=== PATIENT | male | born 1985 | race Caucasian/White ===

== ENCOUNTER 2020-03-08 13:39 | Emergency (ER) | payer SELFPAY ==
[2020-03-08 13:43] VITALS: BP 130/80; PULSE 67; RESP 16; TEMP 36.6; O2SAT 96; BMI 36.9
--- NOTE | 2020-03-08 13:57 | ECG_ITS ---
[facility] Test Date: 2020-03-08 Pat Name: Parvez Gentile Department: Room: Gender: Male [employer] Bench: : 1985 Requested By: Marquise Herrmann I Order Number: [id number] Angel MD: Ramirez Hurtado M.D. Measurements Intervals [place] Rate: 61 P: 47 [place]: 215 QRS: 59 QRSD: 96 T: 49 QT: 377 QTc: 383 Interpretive Statements SINUS RHYTHM WITH FIRST DEGREE AV BLOCK Compared to ECG 09/09/2018 13:16:17 First degree AV block now present Electronically Signed On 03-09-2020 0:28:46 CDT by Ramirez Hurtado M.D. [id number] f
--- NOTE | 2020-03-08 13:57 | CT_ITS ---
WS: [id number] CT HEAD TECHNIQUE: Noncontrast CT of the head obtained from the skullbase to the vertex. CLINICAL INFORMATION: Symptoms of Acute Stroke COMPARISON: None. DLP: 888.[address] scans at [facility] use at least one of these dose optimization techniques: automat ed exposure control; mA and/or kV adjustment per patient size (includes targeted exams where dose is matched to clinical indication); or iterative reconstruction. FINDINGS: No evidence of intracranial hemorrhage or mass effect. Ventricular system and basal cisterns are more[place] nt. No extra-axial fluid collections. No evidence of mass or mass effect. Normal downs-white different iation. Paranasal sinuses and mastoid air cells are well aerated. .Normal visualized soft tissues. Attempted notification Marquise Herrmann MD MSM at 03/08/2020 2:[address]/CT head wo con* [id number] IMPRESSION: 1. No evidence of intracranial hemorrhage or mass effect. 2. Normal downs-white differentiation 3. No acute intracranial findings.
[2020-03-08 14:04] LABS: Glucose Point of Care 92 mg/dL (70-110)
[2020-03-08 14:16] LABS: Basophils % 0.5 %; Eosinophils # 0.1 10^3/uL (0.0-0.8); Eosinophils % 1.2 %; Hematocrit 43.7 % (42.0-52.0); Hemoglobin 14.3 g/dL (11.7-16.6); Lymphocytes # 2.6 10^3/uL (0.8-4.8); Lymphocytes % 33.1 %; Mean Corpuscular HGB Conc 32.7 g/dL (30.0-36.0); Mean Corpuscular Hemoglobin 29.6 pg (28.0-34.0); Mean Corpuscular Volume 90.5 fL (80-94); Mean Platelet Volume 9.9 fL (7.4-10.4); Monocytes # 0.6 10^3/uL (0.2-0.9); Neutrophils # 4.43 10^3/uL (1.8-7.7); Neutrophils % 57.1 %; Nucleated Red Blood Cells % 0 %; Platelet Count 317 10^3/cmm (130-400); Red Blood Count 4.83 10^6/uL (4.1-5.3); Red Cell Distribution Width 12.2 % (12.1-15.1); White Blood Count 7.8 10^3/uL (4.0-10.0)
--- NOTE | 2020-03-08 14:19 | CTR_ITS ---
PROCEDURE INFORMATION: Exam: CT Angiography Head With Contrast Exam date and time: 03/08/2020 2:42 PM Age: 34 years old Clinical indication: Numbness and visual disturbance; Additional info: Stroke-like symptoms TECHNIQUE: Imaging protocol: Computed tomography angiography of the head with intravenous contrast. 3D rendering: MIP and/or 3D reconstructed images were created by the technologist. Radiation optimization: All CT scans at this facility use at least one of these dose optimization techniques: automated exposure control; mA and/or kV adjustment per patient size (includes targeted exams where dose is matched to clinical indication); or iterative reconstruction. Contrast material: OMNI 350; Contrast volume: 95 ml; Contrast route: INTRAVENOUS (IV); COMPARISON: CT head wo con* [id number] 03/08/2020 1:57 PM RADIATION DOSE METRICS: Total DLP (mGy-cm): 2707.76 FINDINGS: ANTERIOR CIRCULATION: Right internal carotid artery: Unremarkable. Intracranial segment is patent with no significant stenosis. No aneurysm. Right middle cerebral artery: Unremarkable. No occlusion or significant stenosis. No aneurysm. Right anterior cerebral artery: Unremarkable. No occlusion or significant stenosis. No aneurysm. Left internal carotid artery: Unremarkable. Intracranial segment is patent with no significant stenosis. No aneurysm. Left middle cerebral artery: Unremarkable. No occlusion or significant stenosis. No aneurysm. Left anterior cerebral artery: Unremarkable. No occlusion or significant stenosis. No aneurysm. POSTERIOR CIRCULATION: Right vertebral artery: The right vertebral artery is hypoplastic, particularly distal to the right PICA origin. No occlusion. No aneurysm. Left vertebral artery: The left vertebral artery is dominant. No stenosis. No aneurysm. Basilar artery: Unremarkable. No occlusion or significant stenosis. No aneurysm. Right posterior cerebral artery: There is a origin of the right posterior cerebral artery. No stenosis. No aneurysm. Left posterior cerebral artery: Unremarkable. No occlusion or significant stenosis. No aneurysm. Orbits: The ophthalmic arteries are normal and symmetric. IMPRESSION: 1. Dominant left vertebral artery and hypoplastic right vertebral artery. 2. No intracranial large vessel stenosis or occlusion. PROCEDURE INFORMATION: Exam: CT Angiography Neck With Contrast Exam date and time: 03/08/2020 2:42 PM Age: 34 years old Clinical indication: Numbness and visual disturbance; Additional info: Stroke-like symptoms TECHNIQUE: Imaging protocol: Computed tomography angiography of the neck with intravenous contrast. 3D rendering: MIP and/or 3D reconstructed images were created by the technologist. Radiation optimization: All CT scans at this facility use at least one of these dose optimization techniques: automated exposure control; mA and/or kV adjustment per patient size (includes targeted exams where dose is matched to clinical indication); or iterative reconstruction. Contrast material: OMNI 350; Contrast volume: 95 ml; Contrast route: INTRAVENOUS (IV); COMPARISON: CT head wo con* [id number] 03/08/2020 1:57 PM RADIATION DOSE METRICS: Total DLP (mGy-cm): 2707.76 FINDINGS: Right common carotid artery: No stenosis. No dissection or occlusion. Right internal carotid artery: No stenosis of the extracranial segment. No dissection or occlusion. Right external carotid artery: No occlusion or stenosis of the origin. Right vertebral artery: No stenosis. No dissection or occlusion. Left common carotid artery: No stenosis. No dissection or occlusion. Left internal carotid artery: No stenosis of the extracranial segment. No dissection or occlusion. Left external carotid artery: No occlusion or stenosis of the origin. Left vertebral artery: No stenosis. No dissection or occlusion. Bones/joints: No acute fracture. Soft tissues: Normal. No significant soft tissue swelling. CT/CT angio headneck* [id number] IMPRESSION: No carotid or vertebral artery stenosis or dissection. REFERENCES: NASCET CRITERIA. The degree of internal carotid artery stenosis is based on NASCET criteria. Normal is no stenosis. Mild is less than 50% stenosis. Moderate is 50-69% stenosis. Severe is 70% to 99% stenosis. Total occlusion is no detectable patent lumen. Radiation Dose CTDIVOL = (mGy): DLP = 2707.76~2707.76 (mGy-cm)
[2020-03-08 14:24] LABS: Alanine Aminotransferase 40 U/L (0-41); Albumin Level 4.5 g/dL (3.5-5.2); Alkaline Phosphatase 69 IU/L (40-130); Anion Gap 13.2 (5-19); Aspartate Amino Transferase 31 U/L (0-40); Blood Urea Nitrogen 16 mg/dL (6-20); Calcium 8.8 mg/dL (8.5-10.5); Carbon Dioxide 25 mmol/L (22-29); Chloride 105 mmol/L (98-107); Globulin 2.8 g/dL (1.3-4.6); Glomerular Filtration Rate 68.9 mL/min (90-130); Glucose 112 mg/dL (65-115); Osmolality Calculated 285 mOsm/kg (285-295); Potassium 4.2 mmol/L (3.5-5.1); Sodium 139 mmol/L (136-145); Total Bilirubin 0.4 mg/dL (0.15-1.2); Total Protein 7.3 g/dL (6.6-8.7)
--- NOTE | 2020-03-08 14:31 | ED_ITS ---
HPI - Neuro Symptoms/Deficit General: Chief Complaint: Neuro Symptoms/Deficit Stated Complaint: L sided Numbness, blurry vision, feels funny' Time Seen by Provider: 03/08/20 13:49 Source: patient Mode of arrival: ambulatory Limitations: no limitations History of Present Illness: HPI Narrative: 34-year-old gentleman with a prior history of a STEMI 2 years ago presents to the emergency department with complaints of left-sided numbness and tingling as well as blurry vision and not feeling well. Symptoms started suddenly when he was taking a car/drive. 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 He denies any focal weakness, no prior history of a stroke. During evaluation his symptoms resolved. Onset (ago): hour(s) (1) Last Observed Normal: 13:15 Location: other (numbness and tingling in left upper and lower extremities and blurry vision) History of same: No Severity: mild Quality: numb and tingling Relieving factors: none Context: sudden onset On Anticoagulants: No Associated symptoms: Reports other (blurry vision); Deny headache(s), nausea or vomiting Treatments Prior to Arrival: none Review of Systems General: Reports: 10 or more systems reviewed and unremarkable except in HPI and below Const: Denies: fever(s), chills or body aches Eyes: Denies: change in vision or blurry vision ENMT: Denies: throat pain, enlarged tonsils, odynophagia, hoarseness, mouth pain or swelling of lips/tongue Card: Denies: palpitations, irregular heart rhythm, edema or swelling of feet/ankles Resp: Denies: dyspnea, productive cough or non-productive cough GI: Denies: abdominal pain, nausea or vomiting : Denies: flank pain, dysuria, urinary frequency, urinary urgency or urinary hesitancy Musc: Denies: neck pain, back pain or extremity swelling Skin/Breast: Denies: rash, pruritus or erythema Neuro: Reports: numbness in extremities; Denies: headache(s) or weakness in extremities Endo: Denies: polyuria, polydipsia or tired all the time [facility] ED PFSH: Medical History Alcoholism Anterior wall myocardial infarction CAD (coronary atherosclerotic disease) Dyslipidemia HTN (hypertension), benign Insomnia Ischemic cardiomyopathy Other stomatitis and mucositis (ulcerative) Surgical History S/P angioplasty with stent Family History Other Cancer Parkinson disease Social History Smoking and tobacco status: former smoker Alcohol intake: current Alcohol intake frequency: holidays/special occasions only Alcohol type: wine Household members: spouse Marital status: service: No Camille/Jewish: Mormon NIH stroke score NIHSS: Level Of Consciousness - 1a: 0 Level Of Consciousness Questions - 1b: Both Correct Level Of Consciousness Commands - 1c: Both Correct Best Gaze - 2: Normal Visual Padilla - 3: No Visual Loss Facial Palsy - 4: Normal Motor Arm Right - 5: No Drift Motor Arm Left - 5: No Drift Motor Leg Right - 6: No Drift Motor Leg Left - 6: No Drift Limb Ataxia - 7: Absent Sensory - 8: Normal Best Language - 9: No Aphasia Dysarthia - 10: Normal Extinction And Inattention - 11: 0 Score: Total Score: 0 Physical Exam Const: COMMON NORMALS: no acute distress, average body habitus, patient oriented x3, no limitations, healthy appearing, alert and well nourished HENMT: COMMON NORMALS: normocephalic, atraumatic and moist oral mucous membranes HEAD & SCALP: normocephalic and atraumatic Neck/C-Spine: COMMON NORMALS: no meningeal signs and no JVD Resp: COMMON NORMALS: normal respiratory effort, No retractions, No use of accessory muscles, clear to auscultation bilaterally and percussion normal AUSCULTATION: clear to auscultation bilaterally PERCUSSION: percussion normal Cardio: COMMON NORMALS: no JVD, regular rate, regular rhythm, S1 normal heart sound present, S2 normal heart sound present, No gallops present (Cardio), No clicks present (Cardio), No murmurs present (Cardio), No rub (Cardio) and Peripheral pulses 2+ throughout RATE: regular rate RHYTHM: regular rhythm HEART SOUNDS: S1 normal heart sound present and S2 normal heart sound present PERIPHERAL PULSES: Peripheral pulses 2+ throughout GI: COMMON NORMALS: Normal to inspection, nondistended, normoactive bowel sounds present, Soft to palpation, non-tender, No hepatosplenomegaly present, no masses and no bruits PALPATION: Yes Soft to palpation and Yes No hepatosplenomegaly present : COMMON NORMALS: Yes no CVA tenderness BLADDER/KIDNEY EXAM: Yes no CVA tenderness Back/Pelvis: COMMON NORMALS: no CVA tenderness Extremity: COMMON NORMALS: normal to inspection, full ROM, capillary refill normal, no calf tenderness and no pedal edema Neuro: COMMON NORMALS: patient oriented x3 SENSORIUM/ORIENTATION: Yes alert MENINGEAL SIGNS: Yes no meningeal signs Skin: COMMON NORMALS: no rashes or lesions noted, no wounds, turgor normal, no jaundice, no petechiae and no mottling GENERAL SKIN EXAM: no rashes or lesions noted and turgor normal Course ED course: 34-year-old gentleman who presented to the emergency department with left and left leg numbness and tingling. He has a prior history of a STEMI 2 years ago. A stroke alert was called on him and a head CT done was negative, the neurologist recommended a heads and neck CTA which also turned out to be negative. He had negative high-sensitivity troponin x2. Other labs are unremarkable. He is therefore discharged home to follow-up with his primary care provider. Consultations: Consultation #1: Dr. Segundo, neurology. She looked at his head CT and advised that he get a CTA of his head and neck before disposition. Vital Signs: Vital signs: Vital Signs Temperature 97.8 F 03/08/20 13:43 Pulse Rate 61 03/08/20 16:02 Respiratory Rate 22 H 03/08/20 16:02 Blood Pressure 116/64 03/08/20 16:02 Pulse Oximetry 95 03/08/20 16:02 MDM - Neuro Symptoms/Deficit MDM Narrative: Medical decision making narrative: 34-year-old male with left- sided numbness and tingling. No focal deficits. No weakness. Examination was unremarkable. NIHSS 0. Head CT and head and neck CTA were both negative. Negative high-sensitivity troponin x2. He is discharged home with no new orders. HEART score 2 for risk factors. Differential Diagnosis: Neuro Differential Diagnosis: Likely subarachnoid hemorrhage, cerebrovascular accident and transient cerebral ischemia Medical Records: Attestation: I reviewed the patient's medical records. Lab Data: Attestation: I reviewed the patient's lab results. Labs: Lab Results 03/08/20 03/08/20 03/08/20 Range/Units 13:57 13:57 13:57 WBC 7.8 (4.0-10.0) 10^3/ uL RBC 4.83 (4.1-5.3) 10^6/u L Hgb 14.3 (11.7-16.6) g/dL Hct 43.7 (42.0-52.0) % MCV 90.5 (80-94) fL MCH 29.6 (28.0-34.0) pg MCHC 32.7 (30.0-36.0) g/dL RDW 12.2 (12.1-15.1) % Plt Count 317 (130-400) 10^3/c mm MPV 9.9 (7.4-10.4) fL Neut % (Auto) 57.1 % Lymph % (Auto) 33.1 % [place] % (Auto) 8.0 % Eos % (Auto) 1.2 % Baso % (Auto) 0.5 % Neut # (Auto) 4.43 (1.8-7.7) 10^3/u L Lymph # (Auto) 2.6 (0.8-4.8) 10^3/u L [place] # (Auto) 0.6 (0.2-0.9) 10^3/u L Eos # (Auto) 0.1 (0.0-0.8) 10^3/u L Baso # (Auto) 0.0 (0.0-0.1) 10^3/u L Nucleated RBC % (a uto) 0 % Nucleated RBCs # 0.0 /100WBC PT 13.80 (12.1-14.9) SECO NDS INR 1.03 (0.8-1.2) APTT 29.3 (23.9-36.7) SECO NDS Sodium 139 (136-145) mmol/L Potassium 4.2 (3.5-5.1) mmol/L Chloride 105 (98-107) mmol/L Carbon Dioxide 25 (22-29) mmol/L Anion Gap 13.2 (5-19) BUN 16 (6-20) mg/dL Creatinine 1.2 (0.7-1.2) mg/dL GFR Calculation 68.9 L (90-130) mL/min Glucose 112 (65-115) mg/dL POC Glucose (70-110) mg/dL Calculated Osmolal ity 285 (285-295) mOsm/k g Calcium 8.8 (8.5-10.5) mg/dL Total Bilirubin 0.4 (0.15-1.2) mg/dL AST 31 (0-40) U/L ALT 40 (0-41) U/L Alkaline Phosphata se 69 (40-130) IU/L Troponin T Baselin e (0-15) ng/L Troponin T 120 Min [place] (0-15) ng/L Delta Troponin T (0-10) ABS# Total Protein 7.3 (6.6-8.7) g/dL Albumin 4.5 (3.5-5.2) g/dL Globulin 2.8 (1.3-4.6) g/dL Urine Color (Yellow) Urine Appearance (CLEAR) Urine pH (5-7) Ur Specific Gravit y (1.005-1.030) Urine Protein (Negative) Urine Glucose (UA) (Normal) Urine Ketones (Negative) Urine Blood (Negative) Urine Nitrate (Negative) Urine Bilirubin (NEGATIVE) Urine Urobilinogen (Negative) mg/dL Ur Leukocyte Gloria ase (Negative) Urine Opiates Scre en (Negative) ng/mL Ur Barbiturates Sc reen (Negative) ng/mL Ur Phencyclidine S crn (Negative) ng/mL Ur Amphetamines Sc reen (Negative) ng/mL U Benzodiazepines Scrn (Negative) ng/mL Urine Cocaine Scre en (Negative) ng/mL U Marijuana (THC) Screen (Negative) ng/mL 03/08/20 03/08/20 03/08/20 Range/Units 13:57 14:00 14:29 WBC (4.0-10.0) 10^3/ uL RBC (4.1-5.3) 10^6/u L Hgb (11.7-16.6) g/dL Hct (42.0-52.0) % MCV (80-94) fL MCH (28.0-34.0) pg MCHC (30.0-36.0) g/dL RDW (12.1-15.1) % Plt Count (130-400) 10^3/c mm MPV (7.4-10.4) fL Neut % (Auto) % Lymph % (Auto) % [place] % (Auto) % Eos % (Auto) % Baso % (Auto) % Neut # (Auto) (1.8-7.7) 10^3/u L Lymph # (Auto) (0.8-4.8) 10^3/u L [place] # (Auto) (0.2-0.9) 10^3/u L Eos # (Auto) (0.0-0.8) 10^3/u L Baso # (Auto) (0.0-0.1) 10^3/u L Nucleated RBC % (a uto) % Nucleated RBCs # /100WBC PT (12.1-14.9) SECO NDS INR (0.8-1.2) APTT (23.9-36.7) SECO NDS Sodium (136-145) mmol/L Potassium (3.5-5.1) mmol/L Chloride (98-107) mmol/L Carbon Dioxide (22-29) mmol/L Anion Gap (5-19) BUN (6-20) mg/dL Creatinine (0.7-1.2) mg/dL GFR Calculation (90-130) mL/min Glucose (65-115) mg/dL POC Glucose 92 (70-110) mg/dL Calculated Osmolal ity (285-295) mOsm/k g Calcium (8.5-10.5) mg/dL Total Bilirubin (0.15-1.2) mg/dL AST (0-40) U/L ALT (0-41) U/L Alkaline Phosphata se (40-130) IU/L Troponin T Baselin e 6 (0-15) ng/L Troponin T 120 Min [place] (0-15) ng/L Delta Troponin T (0-10) ABS# Total Protein (6.6-8.7) g/dL Albumin (3.5-5.2) g/dL Globulin (1.3-4.6) g/dL Urine Color Dark yellow (Yellow) Urine Appearance Clear (CLEAR) Urine pH 6 (5-7) Ur Specific Gravit y 1.025 (1.005-1.030) Urine Protein Neg (Negative) Urine Glucose (UA) Norm (Normal) Urine Ketones Negative (Negative) Urine Blood Neg (Negative) Urine Nitrate Negative (Negative) Urine Bilirubin 1+ H (NEGATIVE) Urine Urobilinogen 4 H (Negative) mg/dL Ur Leukocyte Gloria ase Negative (Negative) Urine Opiates Scre en (Negative) ng/mL Ur Barbiturates Sc reen (Negative) ng/mL Ur Phencyclidine S crn (Negative) ng/mL Ur Amphetamines Sc reen (Negative) ng/mL U Benzodiazepines Scrn (Negative) ng/mL Urine Cocaine Scre en (Negative) ng/mL U Marijuana (THC) Screen (Negative) ng/mL 03/08/20 03/08/20 Range/Units 14:29 15:27 WBC (4.0-10.0) 10^3/ uL RBC (4.1-5.3) 10^6/u L Hgb (11.7-16.6) g/dL Hct (42.0-52.0) % MCV (80-94) fL MCH (28.0-34.0) pg MCHC (30.0-36.0) g/dL RDW (12.1-15.1) % Plt Count (130-400) 10^3/c mm MPV (7.4-10.4) fL Neut % (Auto) % Lymph % (Auto) % [place] % (Auto) % Eos % (Auto) % Baso % (Auto) % Neut # (Auto) (1.8-7.7) 10^3/u L Lymph # (Auto) (0.8-4.8) 10^3/u L [place] # (Auto) (0.2-0.9) 10^3/u L Eos # (Auto) (0.0-0.8) 10^3/u L Baso # (Auto) (0.0-0.1) 10^3/u L Nucleated RBC % (a uto) % Nucleated RBCs # /100WBC PT (12.1-14.9) SECO NDS INR (0.8-1.2) APTT (23.9-36.7) SECO NDS Sodium (136-145) mmol/L Potassium (3.5-5.1) mmol/L Chloride (98-107) mmol/L Carbon Dioxide (22-29) mmol/L Anion Gap (5-19) BUN (6-20) mg/dL Creatinine (0.7-1.2) mg/dL GFR Calculation (90-130) mL/min Glucose (65-115) mg/dL POC Glucose (70-110) mg/dL Calculated Osmolal ity (285-295) mOsm/k g Calcium (8.5-10.5) mg/dL Total Bilirubin (0.15-1.2) mg/dL AST (0-40) U/L ALT (0-41) U/L Alkaline Phosphata se (40-130) IU/L Troponin T Baselin e (0-15) ng/L Troponin T 120 Min [place] 6.00 (0-15) ng/L Delta Troponin T 0 (0-10) ABS# Total Protein (6.6-8.7) g/dL Albumin (3.5-5.2) g/dL Globulin (1.3-4.6) g/dL Urine Color (Yellow) Urine Appearance (CLEAR) Urine pH (5-7) Ur Specific Gravit y (1.005-1.030) Urine Protein (Negative) Urine Glucose (UA) (Normal) Urine Ketones (Negative) Urine Blood (Negative) Urine Nitrate (Negative) Urine Bilirubin (NEGATIVE) Urine Urobilinogen (Negative) mg/dL Ur Leukocyte Gloria ase (Negative) Urine Opiates Scre en Negative (Negative) ng/mL Ur Barbiturates Sc reen Negative (Negative) ng/mL Ur Phencyclidine S crn Negative (Negative) ng/mL Ur Amphetamines Sc reen Negative (Negative) ng/mL U Benzodiazepines Scrn Negative (Negative) ng/mL Urine Cocaine Scre en Negative (Negative) ng/mL U Marijuana (THC) Screen Negative (Negative) ng/mL Imaging Data^: CT Head: Radiologist's impression: [address] [address] [address] Scan Report Signed Patient: Gonzalez Gentile #: [id number] : 1985Acct#:[id number] Age/Sex: 34 / MADM Date: 03/08/20 Loc: ERRoom/Bed: Attending Dr: Ordering Provider/Ordering MD: Marquise Herrmann MD, [facility] Date of Service: 03/08/20 Procedure(s): CT head wo con* [id number] Accession Number(s): [id number] Report Number: [id number] WS: [id number] CT HEAD TECHNIQUE: Noncontrast CT of the head obtained from the skullbase to the vertex. CLINICAL INFORMATION: Symptoms of Acute Stroke COMPARISON: None. DLP: 888.[address] scans at [facility] use at least one of these dose optimization techniques: automated exposure control; mA and/or kV adjustment per patient size (includes targeted exams where dose is matched to clinical indication); or iterative reconstruction. FINDINGS: No evidence of intracranial hemorrhage or mass effect. Ventricular system and basal cisterns are patent. No extra-axial fluid collections. No evidence of mass or mass effect. Normal downs-white differentiation. Paranasal sinuses and mastoid air cells are well aerated. .Normal visualized soft tissues. Attempted notification Marquise Herrmann MD [facility] at 03/08/2020 2:[address]/CT head wo con* [id number] IMPRESSION: 1. No evidence of intracranial hemorrhage or mass effect. 2. Normal downs-white differentiation 3. No acute intracranial findings. Dictated By:René Koehler MD Signed By:René Koehler MDSigned Date/Time:03/08/20 1414 DD/ [address]: Radiologist's impression: [place] [address] CT Scan Report Signed with Addenda Patient: Gonzalez Gentile #: [id number] : 1985Acct#:[id number] Age/Sex: 34 / MADM Date: 03/08/20 Loc: ERRoom/Bed: Attending Dr: Ordering Provider/Ordering MD: Marquise Herrmann MD, [facility] Date of Service: 03/08/20 Procedure(s): CT angio headneck* [id number] Accession Number(s): [id number] Report Number: [id number] ADDENDUM CTA HEAD AND NECK TECHNIQUE: Contrast enhanced CTA of the head and neck with coronal and sagittal reformatted images and maximum intensity projection (MIP) images. NASCET criteria utilized. CLINICAL INFORMATION: stroke-like symptoms COMPARISON: None. DLP: 2707.[address] scans at [facility] use at least one of these dose optimization techniques: automated exposure control; mA and/or kV adjustment per patient size (includes targeted exams where dose is matched to clinical indication); or iterative reconstruction. FINDINGS: RIGHT: Right common carotid artery is patent. No significant right ICA stenosis. ICA is patent to the skull base. LEFT: Left common carotid artery is patent. No significant left ICA stenosis. Left ICA is patent to the skull base. INTRACRANIAL CTA: Left dominant vertebral artery. Smaller but patent right vertebral artery. Basilar artery is patent. Persistent right ACCOUNT ASSOCIATE. Normal vascularity to the ACCOUNT ASSOCIATE territory bilaterally. Both ICAs are patent at the skull base. Normal vascularity to the ROSALINDA and MCA territories bilaterally. No evidence of high- grade proximal stenosis or aneurysm. Patent anterior communicating artery. Normal thyroid gland. Mild mucosal thickening in the ethmoid air cells. Mastoid air cells well aerated. A few prominent cervical lymph nodes likely reactive. IMPRESSION: 1. No significant cervical ICA stenosis. 2. Normal intracranial CTA [place]. 3. No flow-limiting stenosis. Notified Marquise Herrmann MD [facility] at 03/08/2020 3:20 PM. Addendum Dictated By: René Koehler MD Addendum Signed By: René Koehler MDSigned Date/Time:03/08/20 1542 Addendum Cosigned By: PROCEDURE INFORMATION: Exam: CT Angiography Head With Contrast Exam date and time: 03/08/2020 2:42 PM Age: 34 years old Clinical indication: Numbness and visual disturbance; Additional info: Stroke-like symptoms TECHNIQUE: Imaging protocol: Computed tomography angiography of the head with intravenous contrast. 3D rendering: MIP and/or 3D reconstructed images were created by the technologist. Radiation optimization: All CT scans at this facility use at least one of these dose optimization techniques: automated exposure control; mA and/or kV adjustment per patient size (includes targeted exams where dose is matched to clinical indication); or iterative reconstruction. Contrast material: OMNI 350; Contrast volume: 95 ml; Contrast route: INTRAVENOUS (IV); COMPARISON: CT head wo con* [id number] 03/08/2020 1:57 PM RADIATION DOSE METRICS: Total DLP (mGy-cm): 2707.76 FINDINGS: ANTERIOR CIRCULATION: Right internal carotid artery: Unremarkable. Intracranial segment is patent with no significant stenosis. No aneurysm. Right middle cerebral artery: Unremarkable. No occlusion or significant stenosis. No aneurysm. Right anterior cerebral artery: Unremarkable. No occlusion or significant stenosis. No aneurysm. Left internal carotid artery: Unremarkable. Intracranial segment is patent with no significant stenosis. No aneurysm. Left middle cerebral artery: Unremarkable. No occlusion or significant stenosis. No aneurysm. Left anterior cerebral artery: Unremarkable. No occlusion or significant stenosis. No aneurysm. POSTERIOR CIRCULATION: Right vertebral artery: The right vertebral artery is hypoplastic, particularly distal to the right PICA origin. No occlusion. No aneurysm. Left vertebral artery: The left vertebral artery is dominant. No stenosis. No aneurysm. Basilar artery: Unremarkable. No occlusion or significant stenosis. No aneurysm. Right posterior cerebral artery: There is a origin of the right posterior cerebral artery. No stenosis. No aneurysm. Left posterior cerebral artery: Unremarkable. No occlusion or significant stenosis. No aneurysm. Orbits: The ophthalmic arteries are normal and symmetric. IMPRESSION: 1. Dominant left vertebral artery and hypoplastic right vertebral artery. 2. No intracranial large vessel stenosis or occlusion. PROCEDURE INFORMATION: Exam: CT Angiography Neck With Contrast Exam date and time: 03/08/2020 2:42 PM Age: 34 years old Clinical indication: Numbness and visual disturbance; Additional info: Stroke-like symptoms TECHNIQUE: Imaging protocol: Computed tomography angiography of the neck with intravenous contrast. 3D rendering: MIP and/or 3D reconstructed images were created by the technologist. Radiation optimization: All CT scans at this facility use at least one of these dose optimization techniques: automated exposure control; mA and/or kV adjustment per patient size (includes targeted exams where dose is matched to clinical indication); or iterative reconstruction. Contrast material: OMNI 350; Contrast volume: 95 ml; Contrast route: INTRAVENOUS (IV); COMPARISON: CT head wo con* [id number] 03/08/2020 1:57 PM RADIATION DOSE METRICS: Total DLP (mGy-cm): 2707.76 FINDINGS: Right common carotid artery: No stenosis. No dissection or occlusion. Right internal carotid artery: No stenosis of the extracranial segment. No dissection or occlusion. Right external carotid artery: No occlusion or stenosis of the origin. Right vertebral artery: No stenosis. No dissection or occlusion. Left common carotid artery: No stenosis. No dissection or occlusion. Left internal carotid artery: No stenosis of the extracranial segment. No dissection or occlusion. Left external carotid artery: No occlusion or stenosis of the origin. Left vertebral artery: No stenosis. No dissection or occlusion. Bones/joints: No acute fracture. Soft tissues: Normal. No significant soft tissue swelling. CT/CT angio headneck* [id number] IMPRESSION: No carotid or vertebral artery stenosis or dissection. REFERENCES: NASCET CRITERIA. The degree of internal carotid artery stenosis is based on NASCET criteria. Normal is no stenosis. Mild is less than 50% stenosis. Moderate is 50-69% stenosis. Severe is 70% to 99% stenosis. Total occlusion is no detectable patent lumen. Radiation Dose CTDIVOL = (mGy): DLP = 2707.76~2707.76 (mGy-cm) Dictated By:Juwan Jacobo MD Signed By:Juwan Jacoboigned Date/Time:03/08/201523 DD/ 21 EKG Data^: EKG 1: Attestation: I personally reviewed and interpreted this EKG as follows: EKG interpretation date: 03/08/20 EKG interpretation time: 13:54 Prior EKG tracings: available for review Interpretation: Normal sinus rhythm with first-degree AV block. Heart rate [address] changes. Discharge Plan Discharge Patient Disposition: Home Clinical Impression: Numbness and tingling of left arm and leg Condition: Stable Prescriptions: Continued nitroglycerin [Nitrostat] 0.4 mg tablet, sublingual 0.4 mg SUBLINGUAL Q5M PRN (Reason: chest pains) RF: 0 aspirin [Adult Low Dose Aspirin] 81 mg tablet,delayed release (DR/EC) 81 mg PO DAILY RF: 0 lisinopril 10 mg tablet 10 mg PO DAILY Qty: 90 RF: 3 metoprolol succinate 50 mg tablet extended release 24 hr 50 mg PO BID Qty: 180 RF: 3 simvastatin 40 mg tablet 40 mg PO DAILY RF: 0 Discharge Orders: Discharge Order (Routine); Ordered 03/08/20 Ordered By: Marquise Herrmann Discharge Diet: Usual diet Discharge Activity: Resume usual activity Patient Instructions: Numbness and Tingling Activity Restrictions/Additional Instructions: Return for any new or worsening symptoms. Follow-up with your primary care provider within 2 days. Continue home medications. Discharge Date/Time: 03/08/20 16:46 Coding Level of Care Code ED Costuming Supervisor for Grace Bojorquez
--- NOTE | 2020-03-08 14:31 | PC.NURSE ---
dr fitzgerald completed evaluation of patient and recommended CTA
[2020-03-08 14:35] LABS: Add Urine Microscopic? NO
[2020-03-08 14:43] LABS: Bilirubin Urine 1+ (NEGATIVE); Blood Urine Neg (Negative); Glucose Urine UA Norm (Normal); Ketones Urine Negative (Negative); Nitrate Urine Negative (Negative); Protein Urine Neg (Negative); Specific Gravity, Urine 1.025 (1.005-1.030); Urine Appearance Clear (CLEAR); Urine Color Dark Yellow (Yellow); pH Urine 6 (5-7)
[2020-03-08 14:44] LABS: Leukocyte Esterase Urine Negative (Negative); Urobilinogen Urine 4 mg/dL (Negative)
[2020-03-08 14:45] LABS: INR 1.03 (0.8-1.2); Troponin(5th) Baseline 6 ng/L (0-15)
[2020-03-08 14:46] LABS: Partial Thromboplastin Time 29.3 SECONDS (23.9-36.7)
[2020-03-08 14:48] LABS: Amphetamines Screen Urine Negative (Negative); Barbiturates Screen Urine Negative (Negative); Benzodiazepines Screen Urine Negative (Negative); Cocaine Screen Urine Negative (Negative); Opiate Screen Urine Negative (Negative); PCP Screen Urine Negative (Negative); THC Screen Urine Negative (Negative)
[2020-03-08] MEDS: iohexol 350 mg/mL 100 mL Btl IV (15:05)
[2020-03-08 16:02] VITALS: BP 116/64; PULSE 61; RESP 22; O2SAT 95
--- NOTE | 2020-03-08 16:07 | PC.NURSE ---
patient to ct
[2020-03-08 16:10] LABS: Troponin 5 2HR Delta 0 ABS# (0-10)
[2020-03-08 16:44] VITALS: BP 108/52; PULSE 68; RESP 22; O2SAT 96
== END 2020-03-08 16:46 | disposition home or self-care (01) ==
PROVIDERS: Emergency Provider Family Medicine
DX: R20.0 Anesthesia of skin (principal); Z79.82 Long term (current) use of aspirin; I25.10 Atherosclerotic heart disease of native coronary artery without angina pectoris; E78.5 Hyperlipidemia, unspecified; I10 Essential (primary) hypertension; Z87.891 Personal history of nicotine dependence
CPT/HCPCS: 12345; 36415; 36416; 70450; 70496; 70498; 80053; 80306; 81003; 82962; 84484; 85025; 85610; 85730; 93005; 99283; 99284; Q9967

== ENCOUNTER 2020-05-19 01:25 | Emergency (ER) | payer SELFPAY ==
--- NOTE | 2020-05-19 01:28 | XR_ITS ---
WS: [id number] Portable AP upright chest, 05/19/2020 Clinical Data: cp Comparison: Portable chest, 09/09/2018. Findings: No nodules, masses or effusions are seen. The heart is slightly enlarged. The pulmonary vas cularity is not increased. No pneumonia or pneumothorax is seen. Monitor leads on the chest wall. XR/XR chest 1V portable [id number] Impression: Mild cardiomegaly.
--- NOTE | 2020-05-19 01:29 | ECG_ITS ---
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 Measurements Intervals Coy Rate: 51 P: 53 UT: 233 QRS: 62 QRSD: 102 T: 52 QT: 406 QTc: 376 Interpretive Statements SINUS BRADYCARDIA WITH FIRST DEGREE AV BLOCK Compared to ECG 03/08/2020 13:54:29 Sinus rhythm no longer present Electronically Signed On 05-19-2020 18:26:57 CDT by Jermain Kemp M.D. [id number] [email or web address]
[2020-05-19 01:32] VITALS: BP 138/90; PULSE 56; RESP 16; TEMP 36.8; O2SAT 98; BMI 36.9
--- NOTE | 2020-05-19 01:34 | W.ED.CHESTPA ---
HPI - Chest Pain General: Chief Complaint: Chest Pain Stated Complaint: cp Time Seen by Provider: 05/19/20 01:29 Source: patient Mode of arrival: ambulatory Limitations: no limitations History of Present Illness: HPI narrative: 34-year-old male states he start having chest pain last night at 9 PM. He states is been a sharp pain in the center of his chest. Patient does have a history of stent placement in 2019. He denies any worsening improving factors. Denies any shortness of breath. Patient states his pain is currently a 2 out of 10. MD complaint: chest pain Associated symptoms: Deny abdominal pain, dyspnea, fever(s), nausea or vomiting Review of Systems Const: Denies: fever(s), chills, body aches or change in appetite Eyes: Denies: blurry vision or eye discomfort ENMT: Denies: throat pain or dental pain Card: Reports: chest pain Resp: Denies: dyspnea GI: Denies: abdominal pain, nausea, vomiting or diarrhea : Denies: dysuria Musc: Denies: neck pain or back pain Skin/Breast: Denies: rash Neuro: Denies: headache(s) Psych: Denies: depression Earnest/Lymph: Denies: easy bruising All/Imm: Denies: urticaria PFSH ED PFSH: Medical History Alcoholism Anterior wall myocardial infarction CAD (coronary atherosclerotic disease) Dyslipidemia HTN (hypertension), benign Insomnia Ischemic cardiomyopathy Other stomatitis and mucositis (ulcerative) Surgical History S/P angioplasty with stent Family History Other Cancer Parkinson disease Social History Smoking and tobacco status: former smoker Alcohol intake: current Alcohol intake frequency: holidays/special occasions only Alcohol type: wine Household members: spouse Marital status: service: No Camille/Mandaeism: Catholic Physical Exam Const: COMMON NORMALS: no acute distress, patient oriented x3 and healthy appearing HENMT: COMMON NORMALS: normocephalic and atraumatic HEAD & SCALP: normocephalic and atraumatic Eye: COMMON NORMALS: Equal, round and reactive pupils present and EOMs intact bilaterally PUPIL: Yes Equal, round and reactive pupils present Neck/C-Spine: COMMON NORMALS: full ROM and supple Chest: COMMONS NORMALS: normal inspection of the chest and normal palpation of entire chest wall Resp: COMMON NORMALS: normal respiratory effort, No retractions, No use of accessory muscles and clear to auscultation bilaterally AUSCULTATION: clear to auscultation bilaterally Cardio: COMMON NORMALS: regular rate, regular rhythm and No murmurs present (Cardio) RATE: regular rate RHYTHM: regular rhythm GI: COMMON NORMALS: Normal to inspection, nondistended, normoactive bowel sounds present, Soft to palpation, non-tender and no masses PALPATION: Yes Soft to palpation Extremity: COMMON NORMALS: normal to inspection and full ROM Neuro: COMMON NORMALS: patient oriented x3, moves all extremities and no focal motor deficits Psych: COMMON NORMALS: mental status grossly normal, Normal thought process present and cooperative THOUGHT PROCESS: Normal thought process present Skin: COMMON NORMALS: no rashes or lesions noted and no wounds GENERAL SKIN EXAM: no rashes or lesions noted Course Vital Signs: Vital signs: Vital Signs Temperature 98.3 F 05/19/20 01:32 Pulse Rate 43 L 05/19/20 04:31 Respiratory Rate 18 05/19/20 04:31 Blood Pressure 133/54 05/19/20 04:31 Pulse Oximetry 95 05/19/20 04:31 MDM - Chest Pain MDM Narrative: Medical decision making narrative: Parvez presents here with chest pain that is atypical in nature. He has been pain-free here in initial and repeat troponins are normal and patient's EKG shows no signs of ST elevation. Patient has no signs of acute coronary syndrome. He has no signs of pulmonary embolism or aortic dissection. We will get him follow-up with a desktop support technician. Informed him if his pain returns he is return immediately. He understands agrees the plan. Lab Data: Labs: Lab Results 05/19/20 05/19/20 05/19/20 Range/Units 01:40 01:40 01:40 WBC 8.8 (4.0-10.0) 10^3/ uL RBC 4.66 (4.1-5.3) 10^6/u L Hgb 14.1 (11.7-16.6) g/dL Hct 42.4 (42.0-52.0) % MCV 91.0 (80-94) fL MCH 30.3 (28.0-34.0) pg MCHC 33.3 (30.0-36.0) g/dL RDW 12.0 L (12.1-15.1) % Plt Count 296 (130-400) 10^3/c mm MPV 10.1 (7.4-10.4) fL Neut % (Auto) 44.9 % Lymph % (Auto) 43.0 % [place] % (Auto) 10.3 % Eos % (Auto) 1.1 % Baso % (Auto) 0.5 % Neut # (Auto) 3.93 (1.8-7.7) 10^3/u L Lymph # (Auto) 3.8 (0.8-4.8) 10^3/u L [place] # (Auto) 0.9 (0.2-0.9) 10^3/u L Eos # (Auto) 0.1 (0.0-0.8) 10^3/u L Baso # (Auto) 0.0 (0.0-0.1) 10^3/u L Nucleated RBC % (a uto) 0 % Nucleated RBCs # 0.0 /100WBC Sodium 139 (136-145) mmol/L Potassium 4.2 (3.5-5.1) mmol/L Chloride 104 (98-107) mmol/L Carbon Dioxide 25 (22-29) mmol/L Anion Gap 14.2 (5-19) BUN 21 H (6-20) mg/dL Creatinine 1.0 (0.7-1.2) mg/dL GFR Calculation 85.0 L (90-130) mL/min Glucose 94 (65-115) mg/dL Calculated Osmolal ity 291 (285-295) mOsm/k g Calcium 9.2 (8.5-10.5) mg/dL Total Bilirubin 0.3 (0.15-1.2) mg/dL AST 28 (0-40) U/L ALT 38 (0-41) U/L Alkaline Phosphata se 80 (40-130) IU/L Troponin T Baselin e 6 (0-15) ng/L Troponin T 120 Min jonny (0-15) ng/L Delta Troponin T (0-10) ABS# Total Protein 6.6 (6.6-8.7) g/dL Albumin 4.4 (3.5-5.2) g/dL Globulin 2.2 (1.3-4.6) g/dL 05/19/20 Range/Units 03:35 WBC (4.0-10.0) 10^3/ uL RBC (4.1-5.3) 10^6/u L Hgb (11.7-16.6) g/dL Hct (42.0-52.0) % MCV (80-94) fL MCH (28.0-34.0) pg MCHC (30.0-36.0) g/dL RDW (12.1-15.1) % Plt Count (130-400) 10^3/c mm MPV (7.4-10.4) fL Neut % (Auto) % Lymph % (Auto) % [place] % (Auto) % Eos % (Auto) % Baso % (Auto) % Neut # (Auto) (1.8-7.7) 10^3/u L Lymph # (Auto) (0.8-4.8) 10^3/u L [place] # (Auto) (0.2-0.9) 10^3/u L Eos # (Auto) (0.0-0.8) 10^3/u L Baso # (Auto) (0.0-0.1) 10^3/u L Nucleated RBC % (a uto) % Nucleated RBCs # /100WBC Sodium (136-145) mmol/L Potassium (3.5-5.1) mmol/L Chloride (98-107) mmol/L Carbon Dioxide (22-29) mmol/L Anion Gap (5-19) BUN (6-20) mg/dL Creatinine (0.7-1.2) mg/dL GFR Calculation (90-130) mL/min Glucose (65-115) mg/dL Calculated Osmolal ity (285-295) mOsm/k g Calcium (8.5-10.5) mg/dL Total Bilirubin (0.15-1.2) mg/dL AST (0-40) U/L ALT (0-41) U/L Alkaline Phosphata se (40-130) IU/L Troponin T Baselin e (0-15) ng/L Troponin T 120 Min jonny 6.00 (0-15) ng/L Delta Troponin T 0 (0-10) ABS# Total Protein (6.6-8.7) g/dL Albumin (3.5-5.2) g/dL Globulin (1.3-4.6) g/dL Imaging Data^: CXR: Attestation: I personally reviewed and interpreted this imaging study as follows: My impression: no acute abnormality EKG Data^: EKG 1: Attestation: I personally reviewed and interpreted this EKG as follows: EKG interpretation date: 05/19/20 EKG interpretation time: 01:31 Interpretation: sinus josephine hr [address] or t wave abnormalities qrs 102 qtc 383 EKG 2: Attestation: I personally reviewed and interpreted this EKG as follows: EKG interpretation date: 05/19/20 EKG interpretation time: 03:01 Interpretation: sinus josephine hr [address] or t wave abnormalities qrs 97 qtc 402 Discharge Plan Discharge Patient Disposition: Home Clinical Impression: Chest pain Qualifiers: Chest pain type: unspecified Qualified Code(s): R07.9 - Chest pain, unspecified Condition: Stable Prescriptions: No Action nitroglycerin [Nitrostat] 0.4 mg tablet, sublingual 0.4 mg SUBLINGUAL Q5M PRN (Reason: chest pains) RF: 0 aspirin [Adult Low Dose Aspirin] 81 mg tablet,delayed release (DR/EC) 81 mg PO DAILY RF: 0 lisinopril 10 mg tablet 10 mg PO DAILY Qty: 90 RF: 3 metoprolol succinate 50 mg tablet extended release 24 hr 50 mg PO BID Qty: 180 RF: 3 simvastatin 40 mg tablet 40 mg PO DAILY RF: 0 Discharge Orders: Discharge Order (Routine); Ordered 05/19/20 Ordered By: Danica Magallanes Discharge Diet: Advance as tolerated Discharge Activity: Resume usual activity Patient Instructions: Chest Pain (ED) Coding Level of Care Code ED Slime Plant Operator Helper for Shaneg Fwd Exam Comprehensive
[2020-05-19] MEDS: morphine 4 mg/mL SDV 1 mL IVP (01:47)
[2020-05-19] MEDS: aspirin 81 mg Chew Tablet 324 MG PO (01:47)
[2020-05-19 02:12] LABS: Basophils % 0.5 %; Eosinophils # 0.1 10^3/uL (0.0-0.8); Eosinophils % 1.1 %; Hematocrit 42.4 % (42.0-52.0); Hemoglobin 14.1 g/dL (11.7-16.6); Lymphocytes # 3.8 10^3/uL (0.8-4.8); Mean Corpuscular HGB Conc 33.3 g/dL (30.0-36.0); Mean Corpuscular Hemoglobin 30.3 pg (28.0-34.0); Mean Platelet Volume 10.1 fL (7.4-10.4); Monocytes # 0.9 10^3/uL (0.2-0.9); Monocytes % 10.3 %; Neutrophils # 3.93 10^3/uL (1.8-7.7); Neutrophils % 44.9 %; Nucleated Red Blood Cells % 0 %; Platelet Count 296 10^3/cmm (130-400); Red Blood Count 4.66 10^6/uL (4.1-5.3); White Blood Count 8.8 10^3/uL (4.0-10.0)
[2020-05-19 02:18] VITALS: BP 114/64; PULSE 51; RESP 18; O2SAT 95
[2020-05-19 02:29] LABS: Alanine Aminotransferase 38 U/L (0-41); Albumin Level 4.4 g/dL (3.5-5.2); Alkaline Phosphatase 80 IU/L (40-130); Anion Gap 14.2 (5-19); Aspartate Amino Transferase 28 U/L (0-40); Blood Urea Nitrogen 21 mg/dL (6-20); Calcium 9.2 mg/dL (8.5-10.5); Carbon Dioxide 25 mmol/L (22-29); Chloride 104 mmol/L (98-107); Globulin 2.2 g/dL (1.3-4.6); Glucose 94 mg/dL (65-115); Osmolality Calculated 291 mOsm/kg (285-295); Potassium 4.2 mmol/L (3.5-5.1); Sodium 139 mmol/L (136-145); Total Bilirubin 0.3 mg/dL (0.15-1.2); Total Protein 6.6 g/dL (6.6-8.7)
[2020-05-19 02:31] LABS: Troponin(5th) Baseline 6 ng/L (0-15)
[2020-05-19 02:45] VITALS: BP 125/62; PULSE 50; RESP 16; O2SAT 98
--- NOTE | 2020-05-19 03:29 | ECG_ITS ---
[facility] Test Date: 2020-05-19 Pat Name: Parvez Gentile Department: Room: Gender: Male Assembler Watch Train: : 1985 Requested By: Danica Magallanes Order Number: [id number] Angel MD: Jermain Kemp M.D. Measurements Intervals [place] Rate: 49 P: 51 MS: 241 QRS: 63 QRSD: 97 T: 58 QT: 432 QTc: 392 Interpretive Statements SINUS BRADYCARDIA WITH FIRST DEGREE AV BLOCK Compared to ECG 05/19/2020 01:31:23 No significant changes Electronically Signed On 05-19-2020 18:32:50 CDT by Jermain Kemp M.D. [id number]
[2020-05-19 03:30] VITALS: BP 122/63; PULSE 56; RESP 18; O2SAT 96
[2020-05-19 04:31] VITALS: BP 133/54; PULSE 43; RESP 18; O2SAT 95
[2020-05-19 04:54] LABS: Troponin 5 2HR Delta 0 ABS# (0-10)
--- NOTE | 2020-05-19 05:00 | PC.NURSE ---
2nd trop delayed due to lab. Dr and pt notified
[2020-05-19 05:08] VITALS: BP 122/66; PULSE 50; RESP 18; O2SAT 96
--- NOTE | 2020-05-19 05:53 | PC.NURSE ---
Nurse agrees with assessment on patient.
--- NOTE | 2020-05-19 10:14 | DCPLANNER ---
employee welfare manager had message to schedule a follow up appointment for patient with [facility]. employee welfare manager called [facility], spoke with Verito, a follow up appointment was scheduled for Sunday, May 31, 2020 at 2:[address] Hurtado. employee welfare manager called patient with appointment information. Patient stated that he would attend appointment.
--- NOTE | 2020-07-12 12:47 | DCPLANNER ---
Patient had a follow up appointment scheduled for 05.31.20 with [facility] - patient did attend appointment.
== END 2020-05-19 05:08 | disposition home or self-care (01) ==
PROVIDERS: Emergency Provider Emergency Medicine
DX: R07.9 Chest pain, unspecified (principal); Z79.82 Long term (current) use of aspirin; I25.10 Atherosclerotic heart disease of native coronary artery without angina pectoris; E78.5 Hyperlipidemia, unspecified; I10 Essential (primary) hypertension; Z87.891 Personal history of nicotine dependence
CPT/HCPCS: 12345; 71045; 80053; 84484; 85025; 93005; 96374; 99283; J2270

== ENCOUNTER → 2020-06-09 10:25 | Outpatient (BNVA) | payer SELFPAY | PROVIDERS: Visit Provider Internal Medicine Cardiovascular Disease | DX: E78.5 Hyperlipidemia, unspecified (principal) | CPT/HCPCS: 80061; 80076 ==

== ENCOUNTER 2020-07-04 08:10 | Outpatient (CLI) | payer BC, SELFPAY ==
--- NOTE | 2020-07-04 07:15 | USCV_ITS ---
Parvez Gentile Age: 34 Gender: M : 1985 Exam Date: 07/04/2020 08:24 Ordering Phys: Ramirez Hurtado MD ([email or web address]) Technologist: Alberto Montero Exam Location: [facility] [place] Indication: HX OF GA BP: 130 / 80 HR: 54 Rhythm: Sinus Technical Quality: Fair MEASUREMENTS (Male / Female) Normal Values 2D ECHO LV Diastolic Diameter PLAX 4.6 cm 4.2 - 5.9 / 3.9 - 5.3 cm LV Systolic Diameter PLAX 3.6 cm IVS Diastolic Thickness 0.9 cm 0.6 - 1.0 / 0.6 - 0.9 cm IVS Systolic Thickness 1.7 cm LVPW Diastolic Thickness 1.0 cm 0.6 - 1.0 / 0.6 - 0.9 cm LVPW Systolic Thickness 1.4 cm LVOT Diameter 2.2 cm LV Ejection Fraction 2D Teich 44.1 % LV Ejection Fraction MOD 2C 58.7 % LV Ejection Fraction 2C AL 58.5 % LA Diameter 3.5 cm LA Width 3.9 cm LA Height 5.3 cm RA Width 3.6 cm RA Height 4.9 cm M-MODE LV Diastolic Diameter MM 5.1 cm 4.2 - 5.9 / 3.9 - 5.3 cm LV Systolic Diameter MM 3.6 cm LV Ejection Fraction MM Teich 54.3 % IVS Diastolic Thickness MM 1.1 cm 0.6 - 1.0 / 0.6 - 0.9 cm IVS Systolic Thickness MM 1.8 cm LVPW Diastolic Thickness MM 1.0 cm 0.6 - 1.0 / 0.6 - 0.9 cm LVPW Systolic Thickness MM 1.5 cm RV Diastolic Diameter MM 2.8 cm Aortic Annulus Diameter 3.1 cm LA Ao Ratio MM 1.3 MV E Point Septal Separation 0.7 cm DOPPLER AV Peak Velocity 93.0 cm/s LVOT Peak Velocity 75.0 cm/s AV Area Cont Eq vti 3.5 cm squared AV Area Cont Eq pk 3.0 cm squared MV Area PHT 5.0 cm squared Mitral E to A Ratio 1.1 MV E' Velocity 68.0 cm/s TR Peak Velocity 192.7 cm/s TR Peak Gradient 14.8 mmHg TV Peak E Velocity 84.0 cm/s Right Atrial Pressure 3.0 mmHg Pulmonary Artery Systolic Pressu 17.8 mmHg PV Peak Velocity 108.0 cm/s FINDINGS Left Ventricle Normal left ventricular size and systolic function, EF 58 %. Mild hypokinesia of the inferobasal segment. Right Ventricle The right ventricle is normal in size and function. Right Atrium The right atrium is normal in size. Left Atrium The left atrium is normal in size. Mitral Valve Trace mitral valve regurgitation. Aortic Valve No gross abnormalities noted Tricuspid Valve Trace tricuspid valve regurgitation. Pulmonic Valve No gross abnormalities noted Pericardium Normal pericardium without effusion. Aorta Normal ascending aorta dimension. CONCLUSIONS Normal left ventricular size and systolic function, EF 58 %. Mild hypokinesia of the inferobasal segment. Trace mitral and tricuspid valve regurgitation. There is no pericardial effusion. There are no intracardiac masses. No previous study is available for comparison. Dr Ramirez Hurtado MD FACC (Electronically Signed) Final Date: 04 July 2020 10:32 S
== END 2020-07-04 08:11 | disposition home or self-care (01) ==
PROVIDERS: Visit Provider Internal Medicine Cardiovascular Disease
DX: R07.89 Other chest pain (principal); I25.5 Ischemic cardiomyopathy
CPT/HCPCS: 93306

== ENCOUNTER 2020-08-03 07:12 | Outpatient (CLI) | payer BC, SELFPAY ==
--- NOTE | 2020-08-03 07:50 | ECG_ITS ---
[facility] Test Date: 2020-08-03 Pat Name: Parvez Gentile Department: Room: Gender: Male Rigger Up: Tuyet Murry : 1985 Requested By: Ramirez Hurtado Order Number: [id number] Angel MD: Ramirez Hurtado M.D. Interpretive Statements NAME OF STUDY: LEXISCAN SESTAMIBI STRESS TEST INDICATION: Chest Pressure, PROCEDURE: At the baseline, the EKG revealed normal sinus rhythm with normal ST-T's. The baseline blood pressure was 119/72 mm Hg with a heart rate of 62 beats/min. Lexiscan was infused over a period of 20 seconds. A total of 0.4 milligrams of Lexiscan was infused. The stress phase was continued for a total of 5 minutes. Heart rate at the end of the stress phase was 89 with a blood pressure 121/68. The EKG at the peak infusion revealed no significant changes. Sestamibi was injected 20 seconds after the Lexiscan infusion. Blood pressure at the end of the recovery phase was 131/70 with a heart rate of 87 per minute. CONCLUSION: 1. No significant EKG changes with the LexiScan infusion 2. No LexiScan induced chest pain or cardiac arrhythmia 3. Normal blood pressure and heart rate response 4. Sestamibi/sestamibi perfusion scan pending; see separate report. Electronically Signed On 08-03-2020 20:09:36 DIRECTOR EMBALMER by Ramirez Hurtado M.D. [id number]
[2020-08-03 07:51] VITALS: BMI 36.9
--- NOTE | 2020-08-03 07:51 | NMCV_ITS ---
NM jaziel perf SPECT r/s* [id number] Parvez Gentile Age: 34 Gender: M : 1985 Exam Date: 08/03/2020 07:51 Ordering Phys: Ramirez Hurtado MD ([email or web address]) Technologist: SONY Carty Exam Location: [facility] Indications: SOB CHEST PAIN STRESS TEST Please [facility] IMAGE PROTOCOL Rest/Stress 1 Lexiscan Day Radiopharmaceutical Dose (mCi) Administration Site Administered by Rest: Tc-99m 10.9 IV SONY Vanegas Sestamibi Stress:Tc-99m 32.6 IV SONY Vanegas Sestamibi Rest: 03-Aug-2020 60 Discovery 630 Stress: 03-Aug-2020 30 Discovery 630 0.4mg Lexiscan. Images obtained in supine and prone position. SPECT RESULTS Technical Quality: Excellent Raw Data Analysis: Normal Image Corrections: No attenuation or motion correction applied Summed Stress Score: 0 Summed Rest Score: 0 Summed Difference Score: 0 PERFUSION FINDINGS Patchy areas of decreased tracer uptake was noted in the apical region and inferior wall region. No significant reversibility was noted in these regions. FUNCTIONAL RESULTS (calculated via Gated SPECT) Stress Image LV EF (%): 59 Stress EDV (mL):138 TID: 0.81 Stress ESV (mL):57 FUNCTIONAL FINDINGS: 1. Segmental wall motion analysis revealing hypokinesia of the mid and apical segments Myocardial perfusion may revealing fairly uniform tracer uptake with no significant perfusion abnormalities 2. Normal LV ejection fraction 59%. 3. LV wall motion analysis revealing hypokinesia of the mid and apical septal segments. 4. Normal LV volume No significant coronary ischemia, based on the above findings IMPRESSIONS 1. Unremarkable myocardial perfusion imaging 2. Normal LV ejection fraction 59%. 3. LV wall motion analysis revealing hypokinesia of the mid and apical septal segments. 4. Normal LV volume. No significant coronary ischemia, based on the above findings Dr Ramirez Hurtado MD FAC (Electronically Signed) Final Date: 03 August 2020 19:19 S
--- NOTE | 2020-08-03 09:56 | PC.NURSE ---
Stress test Pt unable to reach target HR on treadmill. Dr Hurtado notified and pt changed to Lexiscan mibi.
[2020-08-03 10:09] VITALS: BP 125/65; PULSE 90
[2020-08-03] MEDS: regadenoson 0.4 Mg/5 ml Syringe IVP (10:09)
== END 2020-08-03 07:13 | disposition home or self-care (01) ==
PROVIDERS: PCP Family Medicine; Visit Provider Internal Medicine Cardiovascular Disease
DX: R07.9 Chest pain, unspecified (principal); R06.02 Shortness of breath
CPT/HCPCS: 78452; 93017; A9500; J2785

== ENCOUNTER 2021-04-01 07:48 | Outpatient (CLI) | payer BC, SELFPAY ==
[2021-04-01 08:05] VITALS: BP 108/76; PULSE 62; RESP 17; TEMP 36.5; O2SAT 94; BMI 36.3
[2021-04-01 08:50] VITALS: BP 109/72; PULSE 66; RESP 16; O2SAT 94
[2021-04-01 09:50] VITALS: BP 110/62; PULSE 66; RESP 17; TEMP 36.7
== END 2021-04-01 07:49 | disposition home or self-care (01) ==
LOC: OPS 07:49
PROVIDERS: PCP Family Medicine; Visit Provider Family Medicine
DX: U07.1 COVID-19 (principal)
CPT/HCPCS: 96365

== ENCOUNTER 2022-01-30 09:12 | Outpatient (CLI) | payer BC, SELFPAY ==
[2022-01-30 09:28] VITALS: BMI 36.9
--- NOTE | 2022-01-30 09:30 | NMCV_ITS ---
NM jaziel perf SPECT r/s* [id number] PaxtonParvez zaarte Age: 36 Gender: M : 1985 Exam Date: 01/30/2022 09:30 Ordering Phys: Gaudencio Hidalgo MD ([email or web address]) Technologist: SONY Carty Exam Location: [facility] Indications: PALPITATIONS STRESS TEST Please see separate stress test report in [facility] for full findings IMAGE PROTOCOL Rest/Stress 1 Lexiscan Day Radiopharmaceutical Dose (mCi) Administration Site Administered by Rest: Tc-99m 10.9 IV SONY Vanegas Sestamibi Stress:Tc-99m 32.6 IV SNOY Vanegas Sestamibi Rest: 30-Jan-2022 60 Discovery 630 Stress: 30-Jan-2022 30 Discovery 630 0.4mg Lexiscan. Images obtained in supine and prone position. SPECT RESULTS Technical Quality: Excellent Raw Data Analysis: Normal Image Corrections: No attenuation or motion correction applied Summed Stress Score: 0 Summed Rest Score: 2 Summed Difference Score: 0 PERFUSION FINDINGS SPECT images demonstrate homogeneous tracer distribution throughout the myocardium. FUNCTIONAL RESULTS (calculated via Gated SPECT) Stress Image LV EF (%): 58 Stress EDV (mL):160 TID: 0.92 Stress ESV (mL):67 FUNCTIONAL FINDINGS: There is normal left ventricular systolic function. IMPRESSIONS 1. Normal myocardial perfusion imaging with no evidence of ischemia 2. LV systolic function is normal Jermain Kemp MD (Electronically Signed) Final Date: 30 January 2022 17:02 S
--- NOTE | 2022-01-30 09:30 | ECG_ITS ---
[facility] Test Date: 2022-01-30 Pat Name: Parvez Gentile Department: Room: Gender: Male Resistor Tester: Thu Chamorro : 1985 Requested By: Gaudencio Hidalgo Order Number: [id number] Ortiz MD: Jermain Kemp M.D. Interpretive Statements NAME OF STUDY: LEXISCAN SESTAMIBI STRESS TEST INDICATION: [Chest Pain, ] Procedure: At the baseline, the blood pressure was 119/69 mmHg with a heart rate of 53 bpm. The electrocardiogram showed sinus bradycardia, normal axis with normal ST and T's. The Lexiscan was infused over a period of 20 seconds. A total of 0.4 mg of Lexiscan was infused. The stress phase was continued for a total of 5 minutes. Heart rate was at the end of stress phase was 73 bpm and a blood pressure of 132/84 mmHg. The EKG at the peak infusion revealed since normal sinus rhythm with no significant ST-T wave changes. Sestamibi was injected 20 seconds after the Lexiscan infusion. Blood pressure at the end of recovery phase was 135/69 mmHg with a heart rate of 76 bpm. Conclusion: 1. Normal EKG response to Lexiscan infusion 2. No Lexiscan induced chest pain or cardiac arrhythmia. 3. Normal blood pressure and heart rate response. 4. Sestamibi/sestamibi perfusion scan pending; see separate report. Electronically Signed On 02-17-2022 11:59:50 CDT by Jermain Kemp M.D. [id number]
[2022-01-30] MEDS: regadenoson 0.4 Mg/5 ml Syringe IVP (11:28)
[2022-01-30 11:38] VITALS: BP 135/69; PULSE 75
== END 2022-01-30 09:13 | disposition home or self-care (01) ==
PROVIDERS: PCP Family Medicine; Visit Provider Internal Medicine Cardiovascular Disease
DX: R07.89 Other chest pain (principal); I25.2 Old myocardial infarction; E78.5 Hyperlipidemia, unspecified; I25.10 Atherosclerotic heart disease of native coronary artery without angina pectoris; I10 Essential (primary) hypertension
CPT/HCPCS: 78452; 93017; A9500; J2785

== ENCOUNTER 2022-02-02 15:49 | Outpatient (CLI) | payer BC, SELFPAY ==
--- NOTE | 2022-02-02 15:00 | USCV_ITS ---
Parvez Gentile Age: 36 Gender: M : 1985 Exam Date: 02/02/2022 15:57 Ordering Phys: Gaudencio Hidalgo MD ([email or web address]) Technologist: Isabel Hernandez Exam Location: [facility] [place] Indication: Chest Pain BP: / HR: 68 Rhythm: Sinus Technical Quality: Adequate MEASUREMENTS (Male / Female) Normal Values 2D ECHO LV Diastolic Diameter PLAX 4.1 cm 4.2 - 5.9 / 3.9 - 5.3 cm LV Systolic Diameter PLAX 2.5 cm LV Chamber Size 3.0 cm IVS Diastolic Thickness 0.9 cm 0.6 - 1.0 / 0.6 - 0.9 cm IVS Systolic Thickness 1.3 cm LVPW Diastolic Thickness 1.6 cm 0.6 - 1.0 / 0.6 - 0.9 cm LVPW Systolic Thickness 1.5 cm RV Chamber Size 2.5 cm LVOT Diameter 2.0 cm LV Ejection Fraction 2D Teich 71.0 % LV Ejection Fraction MOD 2C 51.0 % LV Ejection Fraction 2C AL 49.2 % LA Diameter 3.6 cm LA Width 3.5 cm LA Height 4.7 cm RA Width 3.5 cm RA Height 4.5 cm Aorta at Sinotubular Diameter 3.2 cm IVC Diameter 2.1 cm M-MODE Aortic Annulus Diameter 3.6 cm LA Ao Ratio MM 1.2 MV E Point Septal Separation 0.6 cm DOPPLER AV Peak Velocity 125.0 cm/s LVOT Peak Velocity 96.0 cm/s AV Area Cont Eq vti 2.7 cm squared AV Area Cont Eq pk 2.5 cm squared MV Area PHT 3.9 cm squared Mitral E to A Ratio 1.0 MV E' Velocity 41.0 cm/s Mitral E to MV E' Ratio 6.7 Mitral E to LV E' Lateral Ratio 6.6 Mitral E to LV E' Septal Ratio 6.9 TR Peak Velocity 160.7 cm/s TR Peak Gradient 10.3 mmHg TR Mean Velocity 116.7 cm/s TR Mean Gradient 6.4 mmHg TR Velocity Time Integral 37.0 cm TV Peak E Velocity 60.0 cm/s Right Atrial Pressure 3.0 mmHg Pulmonary Artery Systolic Pressu 13.3 mmHg PV Peak Velocity 80.0 cm/s RV Acceleration Time 0.1 s RV Ejection Time 0.3 s RV AcT/ET 0.4 FINDINGS Left Ventricle Normal left ventricular size. LV systolic function is normal with EF of 50-55%. No regional wall motion abnormalities. Diastolic function is normal Right Ventricle The right ventricle is normal in size and function. Right Atrium The right atrium is normal in size. Left Atrium The left atrium is normal in size. Mitral Valve Structurally normal mitral valve without significant stenosis or prolapse. There is no mitral regurgitation. Aortic Valve Structurally normal aortic valve without significant sclerosis or stenosis. There is no aortic regurgitation. Tricuspid Valve Structurally normal tricuspid valve without significant stenosis. Trace tricuspid regurgitation. Pulmonary artery systolic pressure is normal. Pulmonic Valve Not well visualized Pericardium Normal pericardium without effusion. Aorta Normal ascending aorta dimension. IVC CONCLUSIONS LV systolic function is borderline normal with EF of 50-55%. Diastolic function is normal. Trace tricuspid regurgitation. No significant valvular heart disease. Compared to prior echocardiogram from 2019, no significant changes are seen. Jermain Kemp MD (Electronically Signed) Final Date: 17 February 2022 23:00 S
== END 2022-02-02 15:50 | disposition home or self-care (01) ==
LOC: RAD 15:49
PROVIDERS: PCP Family Medicine; Visit Provider Internal Medicine Cardiovascular Disease
DX: E78.5 Hyperlipidemia, unspecified (principal); I25.10 Atherosclerotic heart disease of native coronary artery without angina pectoris; I25.5 Ischemic cardiomyopathy; R07.9 Chest pain, unspecified; I07.1 Rheumatic tricuspid insufficiency
CPT/HCPCS: 93306

== ENCOUNTER → 2022-05-03 11:48 | Outpatient (BNVA) | payer BC, SELFPAY | PROVIDERS: PCP Family Medicine; Visit Provider Clinical Nurse Specialist Adult Health | DX: J02.9 Acute pharyngitis, unspecified (principal) | CPT/HCPCS: 87880 ==

== ENCOUNTER → 2022-05-10 07:55 | Outpatient (BNVA) | payer BC, SELFPAY | PROVIDERS: PCP Family Medicine; Visit Provider Family Medicine | DX: Z51.81 Encounter for therapeutic drug level monitoring (principal); Z00.00 Encounter for general adult medical examination without abnormal findings; J02.9 Acute pharyngitis, unspecified; Z13.220 Encounter for screening for lipoid disorders; R00.2 Palpitations; I10 Essential (primary) hypertension | CPT/HCPCS: 80053; 80061; 84443; 85025; 86141 ==

== ENCOUNTER 2023-01-16 15:26 | Outpatient (CLI) | payer OTHER, SELFPAY ==
--- NOTE | 2023-01-16 15:53 | XRR_ITS ---
PROCEDURE INFORMATION: Exam: XR Lumbosacral Spine Exam date and time: 01/16/2023 3:55 PM Age: 37 years old Clinical indication: Pain; Other: Unspecified; Additional info: Lumbar radiculopathy; Pain since October. TECHNIQUE: Imaging protocol: Radiologic exam of the lumbosacral spine. Views: 2 or 3 views. COMPARISON: No relevant prior studies available. FINDINGS: Bones/joints: Slight scoliosis convex to the patient's right. No compression fractures, spondylolisthesis. Mild degenerative changes lower lumbar spine with mild disc space narrowing facet arthrosis most pronounced at L5-S1. Pedicles are intact. Soft tissues: Unremarkable. XR/XR lumbar spine 2-3V* [id number] IMPRESSION: Mild degenerative changes lower lumbar spine. No acute abnormalities.
== END 2023-01-16 15:27 | disposition home or self-care (01) ==
PROVIDERS: PCP Family Medicine; Visit Provider Family Medicine
DX: M54.16 Radiculopathy, lumbar region (principal); M47.816 Spondylosis without myelopathy or radiculopathy, lumbar region
CPT/HCPCS: 72100

== ENCOUNTER 2023-06-28 21:38 | Emergency (ER) | payer OTHER, SELFPAY ==
--- NOTE | 2023-06-28 21:42 | ECG_ITS ---
[facility] Test Date: 2023-06-28 Pat Name: Parvez Gentile Department: Room: Gender: Male Pairer Substandard: : 1985 Requested By: Avery Leggett Order Number: [id number] Angel MD: Cindy Vu M.D. Measurements Intervals [place] Rate: 63 P: 62 UT: 207 QRS: 78 QRSD: 96 T: 71 QT: 388 QTc: 398 Interpretive Statements SINUS RHYTHM Compared to ECG 05/19/2020 03:01:21 Sinus bradycardia no longer present First degree AV block no longer present Electronically Signed On 06-29-2023 5:55:32 CARPENTRY FOREMAN by Cindy Vu M.D. [email or web address] baptist medical [email or web address] [email or web address] elyria medical centerLocal [employer]/store/NU/[id number] f
--- NOTE | 2023-06-28 21:46 | XRR_ITS ---
PROCEDURE INFORMATION: Exam: XR Chest Exam date and time: 06/28/2023 9:50 PM Age: 37 years old Clinical indication: Chest wall pain; Additional info: Chest pain TECHNIQUE: Imaging protocol: Radiologic exam of the chest. Views: 1 view. COMPARISON: CR XR chest 1V portable [id number] 05/19/2020 1:38 AM FINDINGS: Lungs: No consolidation. Pleural spaces: No large pleural effusion. No pneumothorax. Heart/Mediastinum: Unremarkable cardiomediastinal silhouette. Bones/joints: No acute abnormality. XR/XR chest 1V portable [id number] IMPRESSION: No acute findings.
[2023-06-28 22:03] VITALS: BP 151/80; PULSE 55; RESP 17; TEMP 36.7; O2SAT 97; BMI 33.2
[2023-06-28 22:21] LABS: Basophils # 0.1 10^3/uL (0.0-0.1); Basophils % 0.9 %; Eosinophils # 0.1 10^3/uL (0.0-0.8); Eosinophils % 1.4 %; Hematocrit 44.4 % (37-53); Lymphocytes # 3.1 10^3/uL (0.8-4.8); Lymphocytes % 38.2 %; Mean Corpuscular Hemoglobin 29.5 pg (27-33); Mean Corpuscular Volume 86.9 fl (82-101); Mean Platelet Volume 9.7 fL (7.4-10.4); Monocytes # 0.6 10^3/uL (0.2-0.9); Monocytes % 7.3 %; Neutrophils # 4.23 10^3/uL (1.8-7.7); Neutrophils % 52.1 %; Nucleated Red Blood Cells % 0 %; Platelet Count 335 10^3/cmm (157-399); Red Blood Count 5.11 10^6/uL (3.85-5.65); Red Cell Distribution Width 12.2 % (12.1-15.1); White Blood Count 8.11 10^3/uL (3.29-11.43)
[2023-06-28 22:43] LABS: Chloride 102 mmol/L (98-107); Potassium 4.5 mmol/L (3.5-5.1); Sodium 138 mmol/L (136-145)
[2023-06-28 22:44] LABS: Troponin(5th) Baseline < 6 ng/L (0-15)
[2023-06-28 22:55] LABS: Alanine Aminotransferase 31 U/L (0-41); Alkaline Phosphatase 86 U/L (40-130); Anion Gap 13.5 (5-19); Aspartate Amino Transferase 26 U/L (0-40); Blood Urea Nitrogen 19 mg/dL (6-20); Calcium 9.7 mg/dL (8.5-10.5); Carbon Dioxide 27 mmol/L (22-29); Globulin 2.7 g/dL (1.3-4.6); Glomerular Filtration Rate 83.6 mL/min (90-130); Glucose 100 mg/dL (65-115); Osmolality Calculated 288 mOsm/kg (285-295); Total Bilirubin 0.3 mg/dL (0.15-1.2); Total Protein 7.7 g/dL (6.6-8.7)
--- NOTE | 2023-06-28 23:46 | ECG_ITS ---
[facility] Test Date: 2023-06-29 Pat Name: Parvez Gentile Department: Room: Gender: Male Invasive Cardiologist: : 1985 Requested By: Avery Leggett Order Number: [id number] Angel MD: Cindy Vu M.D. Measurements Intervals [place] Rate: 67 P: 70 NH: 196 QRS: 77 QRSD: 95 T: 69 QT: 382 QTc: 405 Interpretive Statements SINUS RHYTHM Compared to ECG 06/28/2023 21:42:52 No significant changes Electronically Signed On 06-30-2023 21:36:03 NBA PLAYER by Cindy Vu M.D. [id number]
--- NOTE | 2023-06-29 00:34 | W.ED.CHESTPA ---
Documented by User: EVAN Little 06/29/23 01:50 HPI - Chest Pain General: Chief Complaint: Chest Pain Stated Complaint: Chest pain, lighthead, 2 nitro, tingle hand Time Seen by Provider: 06/29/23 00:13 History of Present Illness: Patient is a 37-year-old male with a past medical history significant for prior myocardial infarction requiring stent placement, hypertension, and dyslipidemia who presents to the emergency department for evaluation of chest pain and shortness of breath. Patient states that his chest pain started at approximately 1900 and has since resolved. Patient states that he took 1 nitro at onset which he states alleviated his symptoms. Patient states that he got lightheaded and mildly short of breath. Patient also endorses tingling in his bilateral hands. He denies palpitations, cough, congestion, fever, chills, abdominal pain, constipation, diarrhea, dysuria, hematuria, or any other associated symptoms. No other complaints at this time Associated symptoms: Reports dyspnea; Deny abdominal pain, fever(s), nausea, palpitations, syncope or vomiting Review of Systems General: Reports: 10 or more systems reviewed and unremarkable except in HPI and below Const: Denies: fever(s) or chills Eyes: Denies: change in vision or blurry vision ENMT: Denies: throat pain, ear or mastoid pain, ear discharge, nasal discharge or nasal congestion Card: Reports: chest pain and lightheadedness; Denies: palpitations or syncope Resp: Reports: dyspnea; Denies: productive cough, non-productive cough or wheezing GI: Denies: abdominal pain, nausea, vomiting, diarrhea or constipation : Denies: dysuria or hematuria Musc: Denies: neck pain Skin/Breast: Reports: rash Neuro: Reports: numbness in extremities and dizziness; Denies: headache(s) or vertigo PFSH ED PFSH: Medical History Alcoholism Anterior wall myocardial infarction Atypical chest pain CAD (coronary atherosclerotic disease) Dyslipidemia Encounter for vasectomy counseling HTN (hypertension), benign Insomnia Ischemic cardiomyopathy Other stomatitis and mucositis (ulcerative) Palpitations Surgical History S/P angioplasty with stent Family History Grandmother CAD (coronary artery disease) Cancer Lung disease Mother Parkinson disease Father , at age 50 Alcoholic Denies family history of Diabetes Clotting disorder Dementia Chronic kidney disease (CKD) Anesthesia complication Bleeding disorder Stroke Social History Smoking and tobacco/nicotine status: former use of tobacco/nicotine Substance/Drug Use: never Household members: spouse Marital status: Number of children: 6 service: No Current occupational status: employed Camille/Mandaeism: Hindu Physical Exam Const: COMMON NORMALS: no acute distress and patient oriented x3 HENMT: COMMON NORMALS: normocephalic, atraumatic, moist oral mucous membranes and oropharynx normal HEAD & SCALP: normocephalic and atraumatic Eye: COMMON NORMALS: Equal, round and reactive pupils present, EOMs intact bilaterally, conjunctivae normal and no scleral icterus CONJUNCTIVA: Yes conjunctivae normal PUPIL: Yes Equal, round and reactive pupils present Neck/C-Spine: COMMON NORMALS: full ROM Chest: COMMONS NORMALS: normal inspection of the chest Resp: COMMON NORMALS: normal respiratory effort, No retractions, No use of accessory muscles and clear to auscultation bilaterally AUSCULTATION: clear to auscultation bilaterally Cardio: COMMON NORMALS: regular rate, regular rhythm, No gallops present (Cardio), No clicks present (Cardio), No murmurs present (Cardio) and No rub (Cardio) RATE: regular rate RHYTHM: regular rhythm GI: COMMON NORMALS: Normal to inspection, nondistended, normoactive bowel sounds present, Soft to palpation and non-tender PALPATION: Yes Soft to palpation Extremity: OTHER: Moving bilateral upper and lower extremities without weakness or deficit. Neuro: COMMON NORMALS: patient oriented x3 OTHER: Sensation intact in the bilateral upper and lower extremities. Patient is alert and oriented x 4. No focal neurological deficits noted on examination. Course Vital Signs: Vital signs: Vital Signs Temperature 98.1 F 06/28/23 22:03 Pulse Rate 58 L 06/29/23 02:03 Respiratory Rate 16 06/29/23 02:03 Blood Pressure 130/74 06/29/23 02:03 Pulse Oximetry 100 06/29/23 02:03 Oxygen Delivery Me thod Room Air 06/28/23 22:03 MDM - Chest Pain Medical Decision Making Patient is a 37-year-old male with a past medical history significant for prior myocardial infarction requiring stent placement, hypertension, and dyslipidemia who presents to the emergency department for evaluation of chest pain and shortness of breath. On physical examination patient is nontoxic and in no acute distress. Vital signs remained stable throughout the ED course. Patient is afebrile. Patient is neurovascularly intact. CBC, CMP, initial troponin, and 2-hour troponin all grossly unremarkable. Patient PERC'd out for pulmonary embolism. Chest x-ray showed no acute cardiopulmonary pathology. EKG normal sinus rhythm. Given the patient's history I offered admission for observation and a stress test, however, the patient denied further management at this time and is requesting to follow-up with primary care provider. Increase oral hydration. Take all home medications as prescribed. See handout over generalized instructions. Call your primary care provider tomorrow with an update of your symptoms and schedule appointment for further management/evaluation. Return to the emergency department for any rapid or worsening symptoms to include but not limited to chest pain, shortness of breath, palpitations, lightheadedness, dizziness, nausea, vomiting, fever, or as needed. Patient stated understanding of all discharge instructions was agreeable to plan of care. I discussed patient's history, exam, and all findings with Dr. Rangel in the emergency department who agreed my assessment and plan. Differential diagnosis includes but is not limited to acute coronary syndrome, pulmonary embolism, costochondritis, anxiety, pneumonia, pneumothorax Lab Data 06/28/23 22:07 06/28/23 22:07 Radiology Impressions Chest X-Ray 06/28/23 21:46 IMPRESSION: No acute findings. Laboratory Results WBC 8.11 10^3/uL (3.29-11.43) 06/28/23 22:07 RBC 5.11 10^6/uL (3.85-5.65) 06/28/23 22:07 Hgb 15.10 g/dL (11.27-16.99) 06/28/23 22:07 Hct 44.4 % (37-53) 06/28/23 22:07 MCV 86.9 fl (82-101) 06/28/23 22:07 MCH 29.5 pg (27-33) 06/28/23 22:07 MCHC 34.0 g/dL (30-55) 06/28/23 22:07 RDW 12.2 % (12.1-15.1) 06/28/23 22:07 Plt Count 335 10^3/cmm (157-399) 06/28/23 22:07 MPV 9.7 fL (7.4-10.4) 06/28/23 22:07 Neut % (Auto) 52.1 % 06/28/23 22:07 Lymph % (Auto) 38.2 % 06/28/23 22:07 [place] % (Auto) 7.3 % 06/28/23 22:07 Eos % (Auto) 1.4 % 06/28/23 22:07 Baso % (Auto) 0.9 % 06/28/23 22:07 Neut # (Auto) 4.23 10^3/uL (1.8-7.7) 06/28/23 22:07 Lymph # (Auto) 3.1 10^3/uL (0.8-4.8) 06/28/23 22:07 [place] # (Auto) 0.6 10^3/uL (0.2-0.9) 06/28/23 22:07 Eos # (Auto) 0.1 10^3/uL (0.0-0.8) 06/28/23 22:07 Baso # (Auto) 0.1 10^3/uL (0.0-0.1) 06/28/23 22:07 Nucleated RBC % (auto) 0 % 06/28/23 22:07 Nucleated RBCs # 0.0 /100WBC 06/28/23 22:07 Sodium 138 mmol/L (136-145) 06/28/23 22:07 Potassium 4.5 mmol/L (3.5-5.1) 06/28/23 22:07 Chloride 102 mmol/L (98-107) 06/28/23 22:07 Carbon Dioxide 27 mmol/L (22-29) 06/28/23 22:07 Anion Gap 13.5 (5-19) 06/28/23 22:07 BUN 19 mg/dL (6-20) 06/28/23 22:07 Creatinine 1.0 mg/dL (0.7-1.2) 06/28/23 22:07 GFR Calculation 83.6 mL/min (90-130) L 06/28/23 22:07 Glucose 100 mg/dL (65-115) 06/28/23 22:07 Calculated Osmolality 288 mOsm/kg (285-295) 06/28/23 22:07 Calcium 9.7 mg/dL (8.5-10.5) 06/28/23 22:07 Total Bilirubin 0.3 mg/dL (0.15-1.2) 06/28/23 22:07 AST 26 U/L (0-40) 06/28/23 22:07 ALT 31 U/L (0-41) 06/28/23 22:07 Alkaline Phosphatase 86 U/L (40-130) 06/28/23 22:07 Troponin T Baseline < 6 ng/L (0-15) 06/28/23 22:07 Troponin T 120 Minute 6.00 ng/L (0-15) 06/29/23 00:04 Delta Troponin T 0.20876 ABS# (0-10) 06/29/23 00:04 Total Protein 7.7 g/dL (6.6-8.7) 06/28/23 22:07 Albumin 5.0 g/dL (3.5-5.2) 06/28/23 22:07 Globulin 2.7 g/dL (1.3-4.6) 06/28/23 22:07 All radiology interpretation(s) finalized by discharge Discharge Plan Discharge Patient Disposition: Home Clinical Impression: Chest pain Condition: Stable Prescriptions: No Action nitroglycerin [Nitrostat] 0.4 mg tablet, sublingual 0.4 mg SUBLINGUAL Q5M PRN (Reason: chest pains) aspirin [Adult Low Dose Aspirin] 81 mg tablet,delayed release (DR/EC) 81 mg PO DAILY gabapentin 100 mg capsule 100 mg PO TID Qty: 90 2RF prednisone 20 mg tablet 40 mg PO DAILY 5 Days Qty: 10 0RF cyclobenzaprine 10 mg tablet 10 mg PO TID PRN (Reason: muscle spasm) Qty: 10 0RF metoprolol succinate 50 mg tablet extended release 24 hr 50 mg PO BID Qty: 180 3RF lisinopril 10 mg tablet 10 mg PO DAILY Qty: 90 3RF simvastatin 40 mg tablet 40 mg PO DAILY Qty: 90 3RF Discharge Orders: Discharge ED (Routine); Ordered 06/29/23 Ordered By: Maninder Poole Referrals: Harlan Steiner MD [Primary Care Provider] - Patient Instructions: Chest Pain (ED) Activity Restrictions/Additional Instructions: As discussed in room no acute or concerning pathology was noted on your imaging or laboratory work. Increase oral hydration. Take all home medications as prescribed. See handout over generalized instructions. Call your primary care provider tomorrow with an update of your symptoms and schedule appointment for further management/evaluation. Return to the emergency department for any rapid or worsening symptoms to include but not limited to chest pain, shortness of breath, palpitations, lightheadedness, dizziness, nausea, vomiting, fever, or as needed. Coding Level of Care Code ED Ground Surveillance Systems Operator for Chg Fwd Documented by User: Juan Rangel DO 06/29/23 17:25 HPI - Chest Pain General: Chief Complaint: Chest Pain Stated Complaint: Chest pain, lighthead, 2 nitro, tingle hand Time Seen by Provider: 06/29/23 00:13 PFSH ED PFSH: Medical History Alcoholism Anterior wall myocardial infarction Atypical chest pain CAD (coronary atherosclerotic disease) Dyslipidemia Encounter for vasectomy counseling HTN (hypertension), benign Insomnia Ischemic cardiomyopathy Other stomatitis and mucositis (ulcerative) Palpitations Surgical History S/P angioplasty with stent Family History Grandmother CAD (coronary artery disease) Cancer Lung disease Mother Parkinson disease Father , at age 50 Alcoholic Denies family history of Diabetes Clotting disorder Dementia Chronic kidney disease (CKD) Anesthesia complication Bleeding disorder Stroke Social History Smoking and tobacco/nicotine status: former use of tobacco/nicotine Substance/Drug Use: never Household members: spouse Marital status: Number of children: 6 service: No Current occupational status: employed Camille/Mandaeism: Hindu Course Vital Signs: Vital signs: Vital Signs Temperature 98.1 F 06/28/23 22:03 Pulse Rate 58 L 06/29/23 02:03 Respiratory Rate 16 06/29/23 02:03 Blood Pressure 130/74 06/29/23 02:03 Pulse Oximetry 100 06/29/23 02:03 Oxygen Delivery Me thod Room Air 06/28/23 22:03 MDM - Chest Pain Medical Decision Making Patient is a 37-year-old male with a past medical history significant for prior myocardial infarction requiring stent placement, hypertension, and dyslipidemia who presents to the emergency department for evaluation of chest pain and shortness of breath. On physical examination patient is nontoxic and in no acute distress. Vital signs remained stable throughout the ED course. Patient is afebrile. Patient is neurovascularly intact. CBC, CMP, initial troponin, and 2-hour troponin all grossly unremarkable. Patient PERC'd out for pulmonary embolism. Chest x-ray showed no acute cardiopulmonary pathology. EKG normal sinus rhythm. Given the patient's history I offered admission for observation and a stress test, however, the patient denied further management at this time and is requesting to follow-up with primary care provider. Increase oral hydration. Take all home medications as prescribed. See handout over generalized instructions. Call your primary care provider tomorrow with an update of your symptoms and schedule appointment for further management/evaluation. Return to the emergency department for any rapid or worsening symptoms to include but not limited to chest pain, shortness of breath, palpitations, lightheadedness, dizziness, nausea, vomiting, fever, or as needed. Patient stated understanding of all discharge instructions was agreeable to plan of care. I discussed patient's history, exam, and all findings with Dr. Rangel in the emergency department who agreed my assessment and plan. Differential diagnosis includes but is not limited to acute coronary syndrome, pulmonary embolism, costochondritis, anxiety, pneumonia, pneumothorax This patient was originally seen by Mr. Virgilio PA-C. I agree with his history, evaluation, and treatment. Lab Data 06/28/23 22:07 06/28/23 22:07 Radiology Impressions Chest X-Ray 06/28/23 21:46 IMPRESSION: No acute findings. Laboratory Results WBC 8.11 10^3/uL (3.29-11.43) 06/28/23 22:07 RBC 5.11 10^6/uL (3.85-5.65) 06/28/23 22:07 Hgb 15.10 g/dL (11.27-16.99) 06/28/23 22:07 Hct 44.4 % (37-53) 06/28/23 22:07 MCV 86.9 fl (82-101) 06/28/23 22:07 MCH 29.5 pg (27-33) 06/28/23 22:07 MCHC 34.0 g/dL (30-55) 06/28/23 22:07 RDW 12.2 % (12.1-15.1) 06/28/23 22:07 Plt Count 335 10^3/cmm (157-399) 06/28/23 22:07 MPV 9.7 fL (7.4-10.4) 06/28/23 22:07 Neut % (Auto) 52.1 % 06/28/23 22:07 Lymph % (Auto) 38.2 % 06/28/23 22:07 [place] % (Auto) 7.3 % 06/28/23 22:07 Eos % (Auto) 1.4 % 06/28/23 22:07 Baso % (Auto) 0.9 % 06/28/23 22:07 Neut # (Auto) 4.23 10^3/uL (1.8-7.7) 06/28/23 22:07 Lymph # (Auto) 3.1 10^3/uL (0.8-4.8) 06/28/23 22:07 [place] # (Auto) 0.6 10^3/uL (0.2-0.9) 06/28/23 22:07 Eos # (Auto) 0.1 10^3/uL (0.0-0.8) 06/28/23 22:07 Baso # (Auto) 0.1 10^3/uL (0.0-0.1) 06/28/23 22:07 Nucleated RBC % (auto) 0 % 06/28/23 22:07 Nucleated RBCs # 0.0 /100WBC 06/28/23 22:07 Sodium 138 mmol/L (136-145) 06/28/23 22:07 Potassium 4.5 mmol/L (3.5-5.1) 06/28/23 22:07 Chloride 102 mmol/L (98-107) 06/28/23 22:07 Carbon Dioxide 27 mmol/L (22-29) 06/28/23 22:07 Anion Gap 13.5 (5-19) 06/28/23 22:07 BUN 19 mg/dL (6-20) 06/28/23 22:07 Creatinine 1.0 mg/dL (0.7-1.2) 06/28/23 22:07 GFR Calculation 83.6 mL/min (90-130) L 06/28/23 22:07 Glucose 100 mg/dL (65-115) 06/28/23 22:07 Calculated Osmolality 288 mOsm/kg (285-295) 06/28/23 22:07 Calcium 9.7 mg/dL (8.5-10.5) 06/28/23 22:07 Total Bilirubin 0.3 mg/dL (0.15-1.2) 06/28/23 22:07 AST 26 U/L (0-40) 06/28/23 22:07 ALT 31 U/L (0-41) 06/28/23 22:07 Alkaline Phosphatase 86 U/L (40-130) 06/28/23 22:07 Troponin T Baseline < 6 ng/L (0-15) 06/28/23 22:07 Troponin T 120 Minute 6.00 ng/L (0-15) 06/29/23 00:04 Delta Troponin T 0.15839 ABS# (0-10) 06/29/23 00:04 Total Protein 7.7 g/dL (6.6-8.7) 06/28/23 22:07 Albumin 5.0 g/dL (3.5-5.2) 06/28/23 22:07 Globulin 2.7 g/dL (1.3-4.6) 06/28/23 22:07 Discharge Plan Discharge Patient Disposition: Home Clinical Impression: Chest pain Condition: Stable Prescriptions: No Action nitroglycerin [Nitrostat] 0.4 mg tablet, sublingual 0.4 mg SUBLINGUAL Q5M PRN (Reason: chest pains) aspirin [Adult Low Dose Aspirin] 81 mg tablet,delayed release (DR/EC) 81 mg PO DAILY gabapentin 100 mg capsule 100 mg PO TID Qty: 90 2RF prednisone 20 mg tablet 40 mg PO DAILY 5 Days Qty: 10 0RF cyclobenzaprine 10 mg tablet 10 mg PO TID PRN (Reason: muscle spasm) Qty: 10 0RF metoprolol succinate 50 mg tablet extended release 24 hr 50 mg PO BID Qty: 180 3RF lisinopril 10 mg tablet 10 mg PO DAILY Qty: 90 3RF simvastatin 40 mg tablet 40 mg PO DAILY Qty: 90 3RF Discharge Orders: Discharge ED (Routine); Ordered 06/29/23 Ordered By: Maninder Poole Referrals: Harlan Steiner MD [Primary Care Provider] - Patient Instructions: Chest Pain (ED) Activity Restrictions/Additional Instructions: As discussed in room no acute or concerning pathology was noted on your imaging or laboratory work. Increase oral hydration. Take all home medications as prescribed. See handout over generalized instructions. Call your primary care provider tomorrow with an update of your symptoms and schedule appointment for further management/evaluation. Return to the emergency department for any rapid or worsening symptoms to include but not limited to chest pain, shortness of breath, palpitations, lightheadedness, dizziness, nausea, vomiting, fever, or as needed. Coding Level of Care Code ED Ground Surveillance Systems Operator for Grace Bojorquez
[2023-06-29 00:40] LABS: Troponin 5 2HR Delta 0.00001 ABS# (0-10)
[2023-06-29 02:03] VITALS: BP 130/74; PULSE 58; RESP 16; O2SAT 100
== END 2023-06-29 02:07 | disposition home or self-care (01) ==
PROVIDERS: Emergency Medicine; Emergency Provider Physician Assistant; PCP Family Medicine
DX: R07.9 Chest pain, unspecified (principal); Z79.82 Long term (current) use of aspirin; Z87.891 Personal history of nicotine dependence; I25.2 Old myocardial infarction; I25.10 Atherosclerotic heart disease of native coronary artery without angina pectoris; E78.5 Hyperlipidemia, unspecified; I25.5 Ischemic cardiomyopathy; I10 Essential (primary) hypertension
CPT/HCPCS: 36415; 71045; 80053; 84484; 85025; 93005; 99285

== ENCOUNTER → 2024-08-18 16:05 | Outpatient (BNVA) | payer OTHER, SELFPAY | PROVIDERS: PCP Family Medicine; Visit Provider Emergency Medicine | DX: M25.562 Pain in left knee (principal) | CPT/HCPCS: 73562 ==

== ENCOUNTER 2025-03-03 09:24 | Inpatient (IN) | payer OTHER, SELFPAY ==
--- OUTSIDE RECORDS SUMMARY | 2024-05-23 04:00 | XMS_ITS ---
Author Organization [facility] Address [address] [place] [address] Care Team Providers Care Wall Covering Installer Name Role Phone Bryn Blanco Unavailable [phone] Gaudencio Hidalgo Unavailable Unavailable Migration, Provider Unavailable Unavailable REASON FOR VISIT EMR-Ron Encounters Encounter Location Date Provider Diagnosis Migrated_Facility 0 0 05/23/2024 Provider Migration Plan Of Treatment Next Appt Details Provider Name:Tanvi parikh, 03/10/2025 08:00:00 AM, [address] [place] [address], [place], [address], Provider Name:Bryn Deangelodeshaun , 04/19/2025 03:00:00 PM, [address] [place] [address], [place], [address], Progress Notes * ALVINO BERNALDOB:1985 (39 yo M)Acc No.[id number]:05/23/2024 Patient: Rich DEEPIKAALVINO ABAD :1985 A ge:38 Y S ex:Male [address] [facility] [place] [address] Subjective: * Chief Complaints: * E MR-Ron * * Date:
--- OUTSIDE RECORDS SUMMARY | 2024-05-24 04:00 | XMS_ITS ---
Author Organization [facility] Address [address] [place] [address] Care Team Providers Care Broadcast Systems Engineer Name Role Phone Bryn Blanco Unavailable [phone] Gaudencio Hidalgo Unavailable Unavailable Migration, Provider Unavailable Unavailable Allergies Allergen (clinical drug ingredient) Drug/Non Drug Allergy documented on EMR Reaction Allergy Type Onset Date Status Penicillin Unknown Drug Allergy Active Substance with penicillin structure and antibacterial mechanism of action (substance) Penicillins Hives Drug Allergy Active REASON FOR VISIT EMR-Ron Medications Medication SIG (Take, Route, Frequency, Duration) Notes Start Date End Date Status Metoprolol Tartrate [facility] Active Ibuprofen [facility]* Active [facility]irin [facility] Active Simvastatin *[facility]* Active Lisinopril *[facility]* Active Social History Social History Additional Details Category Social Info Options Details Migrated Social History Migrated Social History Alcoholic beverages? - No, Drug or substance abuse? - Yes : alcohol, Marital Status - , Nonprescription drug use? - No, Participation in detoxification or rehabilitation - Yes, Smoking - No, Working currently? - Yes Encounters Encounter Location Date Provider Diagnosis Migrated_Facility 0 0 05/24/2024 Provider Migration Plan Of Treatment Next Appt Details Provider Name:Tanvi parikh, 03/10/2025 08:00:00 AM, [address] [place], [address], Provider Name:Bryn Blanco , 04/19/2025 03:00:00 PM, [address] [place], [address], Progress Notes * ALVINO BERNALDOB:1985 (39 yo M)Acc No.[id number]:05/24/2024 Patient: ALVINO MARLEY :1985 A ge:38 Y S ex:Male Address:[address] [place] [address] , [place] [address] Subjective: * Chief Complaints: * E MR-Ron * Surgical History: Stent placement * Family History: M igrated Family History: : Cancer, c hronic pain, H eart disease, v ascular disease.? * Social History: M igrated Social History: M igrated Social History: Alcoholic beverages? - No, D rug or substance abuse? - Yes : alcohol, M arital Status - , N onprescription drug use? - No, P articipation in detoxification or rehabilitation - Yes, S moking - No, W orking currently? - Yes. * Medications: T akingIbuprofen , Notes to Pharmacist: *Pick strength-form from [facility] for eRX*Aspirin , Notes to Pharmacist: *Pick strength-form from [facility] for eRX*Metoprolol Tartrate , Notes to Pharmacist: *Pick strength-form from [facility] for eRX*Lisinopril , Notes to Pharmacist: *Pick strength-form from [facility] for eRX*Simvastatin , Notes to Pharmacist: *Pick strength-form from [facility] for eRX*Taking Ibuprofen , Notes to Pharmacist: *Pick strength-form from [facility] for eRX*Taking Aspirin , Notes to Pharmacist: *Pick strength-form from [facility] for eRX*Taking Metoprolol Tartrate , Notes to Pharmacist: *Pick strength-form from [facility] for eRX*Taking Lisinopril , Notes to Pharmacist: *Pick strength-form from [facility] for eRX*Taking Simvastatin , Notes to Pharmacist: *Pick strength-form from [facility] for eRX* * Allergies: P enicillins: Hives - AllergyPenicillin: Allergy * * Date:
[2025-03-03] VITALS (13 sets, daily range): BP systolic 106–125; BP diastolic 61–80; PULSE 46–60; RESP 15–24; TEMP 36.5–36.9; O2SAT 95–99; BMI 35.4
--- NOTE | 2025-03-03 09:29 | ECG_ITS ---
[facility] Test Date: 2025-03-03 Pat Name: Parvez Brice Department: Room: Gender: Male Configuration Management Architect: : 1985 Requested By: Sam Romero Order Number: [id number] Angel MD: Ramirez Hurtado M.D. Measurements Intervals [place] Rate: 55 P: 46 ND: 202 QRS: 50 QRSD: 96 T: 55 QT: 398 QTc: 381 Interpretive Statements SINUS BRADYCARDIA Compared to ECG 06/29/2023 00:34:10 Sinus rhythm no longer present Electronically Signed On 03-03-2025 22:50:15 CDT by Ramirez Hurtado M.D. [id number]
--- OUTSIDE RECORDS SUMMARY | 2025-03-03 09:30 | XMS_ITS | Clinical Summary ---
Author Organization [facility] Address [address] [place] [address] Care Team Providers Care Business Unit Controller Name Role Phone Unavailable Primary Care Provider Unavailabl e Allergies Active Allergy Reactions Criticality Noted Date Comments Penicillins Hives High 06/28/2020 Medications metoprolol succinate 50 mg capsule,sprinkle ,ER 24hr Take 50 mg by mouth 2 times daily. Active lisinopriL (PRINIVIL) 10 mg tablet Take 10 mg by mouth daily. Active ASPIRIN ORAL Take by mouth. Active simvastatin (ZOCOR) 40 mg tablet Take 40 mg by mouth daily with supper. Active Active Problems No known active problems Social History Tobacco Use Types Packs/Day Years Used Date Smoking Tobacco: Never Smokeless Tobacco: Never Sex and Gender Information Value Date Recorded Sex Assigned at Not on file Legal Sex Male 12:59 PM SHOE CLEANER Gender Identity Not on file Sexual Orientation Not on file Last Filed Vital Signs Vital Sign Reading Time Taken Comments Blood Pressure 110/72 06/28/2020 1:05 PM SHOE CLEANER Pulse 71 06/28/2020 1:05 PM SHOE CLEANER Temperature 37.5 C (99.5 F) 06/28/2020 1:05 PM SHOE CLEANER Respiratory Rate - - Oxygen Saturation 95% 06/28/2020 1:05 PM SHOE CLEANER Inhaled Oxygen Concentration - - Weight 114.8 kg (253 lb) 06/28/2020 1:05 PM SHOE CLEANER Height 175.3 cm (5' 9 ) 06/28/2020 1:05 PM SHOE CLEANER Body Mass Index 37.36 06/28/2020 1:05 PM SHOE CLEANER Plan of Treatment Health Maintenance Due Date Last Done Comments HPV VACCINES (1 - Male 3-dose series) 10/10/1999 DTAP/TDAP/TD VACCINES (1 - Tdap) 10/10/2003 HEPATITIS B VACCINES (1 of 3 - 19+ 3-dose series) 09/26 INFLUENZA VACCINE (#1) 2025
--- OUTSIDE RECORDS SUMMARY | 2025-03-03 09:30 | XMS_ITS | Clinical Summary ---
Author Organization [facility] Address [address] [facility] Attn: [place] [address] Care Team Providers Care Club Director Name Role Phone Unavailable Primary Care Provider Unavailabl e Allergies Active Allergy Reactions Criticality Noted Date Comments Penicillins Hives High 06/28/2020 Medications lisinopriL (PRINIVIL) 10 mg tablet Take 10 mg by mouth daily. 06/28/2020 Active simvastatin (ZOCOR) 40 mg tablet Take 40 mg by mouth daily with supper. 06/28/2020 Active metoprolol succinate 50 mg capsule,sprinkle ,ER 24hr Take 50 mg by mouth 2 times daily. 06/28/2020 Active ASPIRIN ORAL Take by mouth. 06/28/2020 Active Social History Tobacco Use Types Packs/Day Years Used Date Smoking Tobacco: Never Smokeless Tobacco: Never Sex and Gender Information Value Date Recorded Sex Assigned at Not on file Legal Sex Male 10:29 PM [employer] Gender Identity Not on file Sexual Orientation Not on file Last Filed Vital Signs Vital Sign Reading Time Taken Comments Blood Pressure 110/72 06/28/2020 1:05 PM [employer] Pulse 71 06/28/2020 1:05 PM [employer] Temperature 37.5 C (99.5 F) 06/28/2020 1:05 PM [employer] Respiratory Rate - - Oxygen Saturation - - Inhaled Oxygen Concentration - - Weight 114.8 kg (253 lb) 06/28/2020 1:05 PM [employer] Height 175.3 cm (5' 9 ) 06/28/2020 1:05 PM [employer] Body Mass Index 37.36 06/28/2020 1:05 PM [employer] Plan of Treatment Health Maintenance Due Date Last Done Comments HPV VACCINES (1 - Male 3-dose series) 10/10/1999 DTAP/TDAP/TD VACCINES (1 - Tdap) 10/10/2003 HEPATITIS B VACCINES (1 of 3 - 19+ 3-dose series) 09/26 INFLUENZA VACCINE (#1) 2025
--- OUTSIDE RECORDS SUMMARY | 2025-03-03 09:30 | XMS_ITS | Patient Health Record ---
Author Organization [facility] Address [address] [place] [address] Care Team Providers Care Utility Worker [place]ge Name Role Phone Bryn Blanco Unavailable [phone] Gaudencio Hidalgo Unavailable Unavailable Migration, Provider Unavailable Unavailable Allergies Allergen (clinical drug ingredient) Drug/Non Drug Allergy documented on EMR Reaction Allergy Type Onset Date Status Penicillin Unknown Drug Allergy Active Substance with penicillin structure and antibacterial mechanism of action (substance) Penicillins Hives Drug Allergy Active Results Component Value Reference Range Notes Electrocardiogram (EKG) - 93 000 Reviewed date:10/16/2024 10:18:56 AM Interpretation: Performing Lab: Notes/Report: Reason For Referral No Information Medications Medication SIG (Take, Route, Frequency, Duration) Notes Start Date End Date Status Rosuvastatin Calcium 20 MG Tablet Take 1 tablet by mouth in the evening; Duration: 90 Active Isosorbide Mononitrate ER 30 MG Tablet Extended Release 24 Hour 1 tablet in the morning Orally Once a day; Duration: 90 days Active Bisoprolol Fumarate 5 MG Tablet 1/2 tablet Orally Once a day; Duration: 30 days Active Aspirin 81 81 MG Tablet Delayed Release 1 tablet Orally Once a day Active Wegovy 0.25 MG/0.5ML Solution Auto-injector 0.5 mL Subcutaneous once weekly; Duration: 30 days 04/08/2024 Not-Taking Social History Tobacco Use: Social History Observation Description Date Details (start date - stop date) Former Smoker NA - NA Social History Tobacco Use: Social Info Question Answer Notes xTobacco Use/Smoking Are you a former smoker Additional Details Category Social Info Options Details Migrated Social History Migrated Social History Alcoholic beverages? - No, Drug or substance abuse? - Yes : alcohol, Marital Status - , Nonprescription drug use? - No, Participation in detoxification or rehabilitation - Yes, Smoking - No, Working currently? - Yes Section Notes: denies alcohol admits caffeine denies alcohol admits caffeine denies alcohol admits caffeine denies alcohol admits caffeine denies alcohol admits caffeine Problems Problem Type SNOMED Code ICD Code Onset Dates Problem Status W/U Status Risk Notes Problem Essential hypertension (32584576) Essential (primary) hypertension (I10) Active confirmed Problem Palpitations (48291625) Palpitations (R00.2) Active confirmed Problem Atherosclerosis of coronary artery without angina pectoris (150111414736230) Atherosclerosis of jamul coronary artery of jamul heart without angina pectoris (I25.10) Active confirmed Problem History of placement of stent for coronary artery disease (situation) (102574505) History of coronary artery stent placement (Z95.5) Active confirmed Problem Atypical chest pain (803731398) Atypical chest pain (R07.89) Active confirmed Problem History of placement of stent for coronary artery disease (situation) (758993339) H/O heart artery stent (Z95.5) Active confirmed Problem Hyperlipidemia (40326334) Hyperlipidemia (E78.5) Active confirmed Problem Atherosclerotic heart disease of jamul coronary artery without angina pectoris (612745483894366) Nonobstructive atherosclerosis of coronary artery (I25.10) Active confirmed Problem Coronary artery disease with other form of angina pectoris, unspecified vessel or lesion type, unspecified whether jamul or transplanted heart (I25.118) Active confirmed Vital Signs Heart Rate 61 /min 10/15/2024 Blood pressure diastolic 72 mm Hg 10/15/2024 Oximetry 96 % 10/15/2024 Height-cm 175.26 cm 10/15/2024 Weight-kg 108.23 kg 10/15/2024 Height 69 in 10/15/2024 Blood pressure systolic 110 mm Hg 10/15/2024 Weight 238.6 lbs 10/15/2024 BMI 35.23 kg/m2 10/15/2024 Encounters Encounter Location Date Provider Diagnosis [facility] [address] [place] [id number] 04/06/2024 Bryn Blanco Essential (primary) hypertension I10 ; Dizziness R42 ; Hyperlipidemia E78.5 ; Coronary artery disease with other form of angina pectoris, unspecified vessel or lesion type, unspecified whether jamul or transplanted heart I25.118 ; H/O heart artery stent Z95.5 ; Nonobstructive atherosclerosis of coronary artery I25.10 and Abnormal stress test R94.[address] [place] [address] 10/15/2024 Bryn Blanco Essential (primary) hypertension I10 ; Hyperlipidemia E78.5 ; Nonobstructive atherosclerosis of coronary artery I25.10 ; History of coronary artery stent placement Z95.5 and Other fatigue R53.83 Migrated_Facility 0 0 05/24/2024 Provider Migration Migrated_Facility 0 0 05/23/2024 Provider Migration [facility] [address] [place] [address] 04/08/2024 Bryn Blanco Assessments Encounter Date Diagnosis (ICD Code) Assessment Notes Treatment Notes Treatment Clinical Notes Section Notes 04/06/2024 Essential (primary) hypertension (ICD-10 - I10) The patient reports occasional dizziness and his BP is running on the softer side. Discontinue lisinopril. Reduce bisoprolol to 2.5 mg once per day. 04/06/2024 Dizziness (ICD-10 - R42) The patient reports occasional dizziness and his BP is running on the softer side. Discontinue lisinopril. Reduce bisoprolol to 2.5 mg once per day. 10/15/2024 Essential (primary) hypertension (ICD-10 - I10) BP is well controlled. Continue current dose of bisoprolol. 10/15/2024 Hyperlipidemia (ICD-10 - E78.5) Continue current dose of rosuvastatin (Crestor) for high-intensity statin therapy. LDL last measured at 51. 10/15/2024 Nonobstructive atherosclerosis of coronary artery (ICD-10 - I25.10) He is known to have nonobstructive CAD per August 2023 [facility]. Patient is not having anginal symptoms. Continue current dose of aspirin and isosorbide. The patient's insurance did not offer affordable coverage for Wegovy. 04/06/2024 Hyperlipidemia (ICD-10 - E78.5) Continue current dose of Crestor for high-intensity statin. 04/06/2024 Coronary artery disease with other form of angina pectoris, unspecified vessel or lesion type, unspecified whether jamul or transplanted heart (ICD-10 - I25.118) He is known to have nonobstructive CAD per August 2023 [facility]. Continue current dose of isosorbide. Start Wegovy and titrate up as directed, as it is shown to have benefits in people with CAD. 10/15/2024 History of coronary artery stent placement (ICD-10 - Z95.5) Status post PCI to the proximal LAD in 2019. 10/15/2024 Other fatigue (ICD-10 - R53.83) 04/06/2024 H/O heart artery stent (ICD-10 - Z95.5) Status post PCI to the LAD in 2019. Continue current dose of aspirin. 04/06/2024 Nonobstructive atherosclerosis of coronary artery (ICD-10 - I25.10) 04/06/2024 Abnormal stress test (ICD-10 - R94.39) 04/06/2024 Other Follow up in 6 months. Obtain EKG. Lou Rob am scribing for Bryn Blanco MD.Bryn Rob MD, personally performed the services prescribed in this documentation , as scribed by Lou Allen, and it is both accurate and complete. 10/15/2024 Other Follow up in 6 months. Lou Rob am scribing for Bryn Blanco MD.Bryn Rob MD, personally performed the services prescribed in this documentation , as scribed by Lou Allen, and it is both accurate and complete. Plan Of Treatment Pending Test Test Name Order Date Prothrombin Time 68275 09/16/2023 Basic Metabolic Panel (BMP) 10210 2023 Lipid Panel Reflex DLDL 00942, 87805 Partial Thromboplastin Time 75165 2023 CBC Reflex Man Diff 88683, 18264 024 Electrocardiogram 12 Lead Tracing-68909 09/16/2023 Next Appt Details Provider Name:Tanvi parikh, 03/10/2025 08:00:00 AM, [address] [place], [address], Provider Name:Bryn Blnaco , 04/19/2025 03:00:00 PM, [address] [place], [address], Insurance Providers Payer Name Payer Address Payer Phone Subscriber Number Group Number Insured Name Patient Relationship to Insured Coverage Start Date Coverage End Date Web [employer] [address] [place] [address] [id number] [place] [address] JesseSarai dorman Spouse - patient is the spouse of the insured Medical (General) History Medical History History ICD Code htn heart disease hx of covid hx of heart attack Surgical History Surgery Date(Month/Year) stent to LAD 09/09/2018 [facility]. Non obstructive coron renee artery disease with patent stent in LAD 2. Normal ejection fraction with EF 65% 09/26/2023 Stent placement Hospitalization History Reason Date(Month/Year) chest pain, SOB, [facility] 06/2023
--- NOTE | 2025-03-03 09:36 | XRR_ITS ---
PROCEDURE INFORMATION: Exam: XR Chest Exam date and time: 03/03/2025 9:39 AM Age: 39 years old Clinical indication: Pain; Angina pectoris; Additional info: Chest pain TECHNIQUE: Imaging protocol: Radiologic exam of the chest. Views: 1 view. COMPARISON: CR XR chest 1V portable [id number] 06/28/2023 9:50 PM FINDINGS: Lungs: Unremarkable. No consolidation. Pleural spaces: Unremarkable. No pleural effusion. No pneumothorax. Heart/Mediastinum: Unremarkable. No cardiomegaly. Bones/joints: Unremarkable. XR/XR chest 1V portable [id number] IMPRESSION: No acute findings.
[2025-03-03 09:54] LABS: Hematocrit 40.2 % (37-53); Hemoglobin 14.00 g/dL (11.27-16.99); Mean Corpuscular HGB Conc 34.8 g/dL (30-55); Mean Corpuscular Hemoglobin 30.2 pg (27-33); Mean Corpuscular Volume 86.6 fl (82-101); Nucleated Red Blood Cells % 0 %; Platelet Count 288 10^3/cmm (157-399); Red Blood Count 4.64 10^6/uL (3.85-5.65); White Blood Count 7.12 10^3/uL (3.29-11.43)
--- NOTE | 2025-03-03 10:04 | ED_ITS ---
HPI - Chest Pain 2 General: Chief Complaint: Chest Pain Stated Complaint: sob, chest pain Time Seen by Provider: 03/03/25 09:27 History of Present Illness: 39-year-old male presents emergency room with complaints of chest pain. Over last 2 weeks he has had several episodes of chest pain with exertion relieved by rest. He has a known history of coronary disease in 2019 he had a LAD stent placed at our facility. Been doing well up until recently when he began to have exertional chest pain. 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 On arrival here he is noted to be bradycardic he is on a beta-royer. Associated symptoms: Deny abdominal pain, dyspnea or fever(s) Related Data Home Medications ?Medication ?Instructions ?Recorded ?Confirmed aspirin 81 mg tablet,delayed 81 mg PO DAILY 07/30/19 0 03/03/25 release (Adult Low Dose Aspirin) nitroglycerin 0.4 mg sublingual 0.4 mg sublingual Q5M PRN chest 07/30/19 03/03/25 tablet (Nitrostat) pains isosorbide mononitrate 30 mg 30 mg PO DAILY 08/18/24 0 03/03/25 tablet,extended release 24 hr Previous Rx's ?Medication ?Instructions ?Recorded lisinopril 10 mg tablet 10 mg PO DAILY #90 tabs 12/18 Allergies Allergy/AdvReac Type Severity Reaction Status Date / Time Penicillins Allergy Severe ALGY-Hives Verified 08/18/24 15:53 Review of Systems 2 Const: Denies: fever(s) or chills Card: Reports: chest pain and dyspnea on exertion; Denies: edema, swelling of feet/ankles or orthopnea Resp: Denies: dyspnea GI: Denies: abdominal pain : Denies: dysuria, urinary frequency or urinary urgency Musc: Denies: neck pain or back pain Skin/Breast: Denies: rash PFSH ED 2 PFSH: Medical History Encounter for vasectomy counseling Palpitations Atypical chest pain Anterior wall myocardial infarction Other stomatitis and mucositis (ulcerative) Insomnia Dyslipidemia CAD (coronary atherosclerotic disease) Ischemic cardiomyopathy Alcoholism HTN (hypertension), benign Surgical History S/P angioplasty with stent Family History Grandmother CAD (coronary artery disease) Cancer Lung disease Mother Parkinson disease Father , at age 50 Alcoholic Denies family history of Diabetes Clotting disorder Dementia Chronic kidney disease (CKD) Anesthesia complication Bleeding disorder Stroke Social History Smoking and tobacco/nicotine status: former use of tobacco/nicotine (quit 2019) Substance/Drug Use: never Household members: spouse Marital status: Number of children: 6 service: No Current occupational status: employed [employer]: [employer] Physical Exam 2 Const: GENERAL APPEARANCE: cooperative ORIENTATION/CONSCIOUSNESS: Yes awake, Yes oriented to person, Yes oriented to place and Yes oriented to time HENMT: COMMON NORMALS: normocephalic, atraumatic and hearing grossly normal bilaterally HEAD & SCALP: normocephalic and atraumatic Resp: COMMON NORMALS: normal respiratory effort, No retractions, No use of accessory muscles and clear to auscultation bilaterally AUSCULTATION: clear to auscultation bilaterally Cardio: COMMON NORMALS: regular rate, regular rhythm and No murmurs present (Cardio) RATE: regular rate RHYTHM: regular rhythm GI: COMMON NORMALS: Soft to palpation and No hepatosplenomegaly present A USCULTATION: Yes normoactive bowel sounds PALPATION: Yes Soft to palpation, No Tenderness to palpation present (GI), No Guarding due to palpation present (GI) and Yes No hepatosplenomegaly present Extremity: COMMON NORMALS: normal to inspection, capillary refill normal, no clubbing, cyanosis or edema, no calf tenderness and no pedal edema Neuro: SENSORIUM/ORIENTATION: Yes oriented to person, Yes oriented to place and Yes oriented to time Skin: COMMON NORMALS: no rashes or lesions noted GENERAL SKIN EXAM: no rashes or lesions noted Course 2 Vital Signs: Vital signs: Vital Signs Temperature 97.9 F 03/04/25 10:59 Pulse Rate 56 L 03/04/25 15:00 Respiratory Rate 16 03/04/25 15:00 Blood Pressure 114/59 03/04/25 14:45 Pulse Oximetry 95 03/04/25 15:00 Oxygen Delivery Me thod Room Air 03/03/25 15:12 MDM - Chest Pain Medical Decision Making Patient had exertional dyspnea by his description and is escalating. With known history of heart disease we will admit. Discussed with cardiology they have asked us to order stat echo and they will see the patient. He did have a slight bump of +5 on his troponin. Discussed with hospitalist as well orders written. Chest x-ray was clear no sign of pneumonia pneumothorax or widening of the mediastinum suggestive of aneurysm. Medical Records I reviewed the patient's medical records. Lab Data I reviewed the patient's lab results. 03/04/25 00:49 03/04/25 00:49 Radiology Impressions Chest X-Ray 03/03/25 09:36 IMPRESSION: No acute findings. Laboratory Results WBC 7.12 10^3/uL (3.29-11.43) 03/03/25 09:45 RBC 4.64 10^6/uL (3.85-5.65) 03/03/25 09:45 Hgb 14.00 g/dL (11.27-16.99) 03/03/25 09:45 Hct 40.2 % (37-53) 03/03/25 09:45 MCV 86.6 fl (82-101) 03/03/25 09:45 MCH 30.2 pg (27-33) 03/03/25 09:45 MCHC 34.8 g/dL (30-55) 03/03/25 09:45 RDW 12.5 % (12.1-15.1) 03/03/25 09:45 Plt Count 288 10^3/cmm (157-399) 03/03/25 09:45 MPV 9.5 fL (7.4-10.4) 03/03/25 09:45 Neut % (Auto) 58.3 % 03/03/25 09:45 Lymph % (Auto) 31.2 % 03/03/25 09:45 [place] % (Auto) 8.0 % 03/03/25 09:45 Eos % (Auto) 1.5 % 03/03/25 09:45 Baso % (Auto) 0.7 % 03/03/25 09:45 Neut # (Auto) 4.15 10^3/uL (1.8-7.7) 03/03/25 09:45 Lymph # (Auto) 2.2 10^3/uL (0.8-4.8) 03/03/25 09:45 [place] # (Auto) 0.6 10^3/uL (0.2-0.9) 03/03/25 09:45 Eos # (Auto) 0.1 10^3/uL (0.0-0.8) 03/03/25 09:45 Baso # (Auto) 0.1 10^3/uL (0.0-0.1) 03/03/25 09:45 Nucleated RBC % (auto) 0 % 03/03/25 09:45 Nucleated RBCs # 0.0 /100WBC 03/03/25 09:45 Sodium 136 mmol/L (136-145) 03/03/25 09:45 Potassium 4.1 mmol/L (3.5-5.1) 03/03/25 09:45 Chloride 102 mmol/L (98-107) 03/03/25 09:45 Carbon Dioxide 23 mmol/L (22-29) 03/03/25 09:45 Anion Gap 15.1 (5-19) 03/03/25 09:45 BUN 15 mg/dL (6-20) 03/03/25 09:45 Creatinine 0.8 mg/dL (0.7-1.2) 03/03/25 09:45 GFR Calculation 107.1 mL/min (90-130) 03/03/25 09:45 Glucose 104 mg/dL (65-115) 03/03/25 09:45 Calculated Osmolality 283 mOsm/kg (285-295) L 03/03/25 09:45 Calcium 9.2 mg/dL (8.5-10.5) 03/03/25 09:45 Total Bilirubin 0.4 mg/dL (0.15-1.2) 03/03/25 09:45 AST 29 U/L (0-40) 03/03/25 09:45 ALT 28 U/L (0-41) 03/03/25 09:45 Alkaline Phosphatase 77 U/L (40-130) 03/03/25 09:45 Troponin T Baseline < 6 ng/L (0-15) 03/03/25 09:45 Troponin T 120 Minute 11.03 ng/L (0-15) 03/03/25 11:46 Delta Troponin T 5.65848 ABS# (0-10) 03/03/25 11:46 Total Protein 7.1 g/dL (6.6-8.7) 03/03/25 09:45 Albumin 4.3 g/dL (3.5-5.2) 03/03/25 09:45 Globulin 2.8 g/dL (1.3-4.6) 03/03/25 09:45 All radiology interpretation(s) finalized by discharge Discharge Plan Discharge Patient Disposition: Admitted As Inpatient Admit Provider: Mckayla Cole Clinical Impression: Stable angina, S/P angioplasty with stent, HTN (hypertension), benign, CAD (coronary atherosclerotic disease) Condition: Stable Discharge Diet: Advance as tolerated, Usual diet and Cardiac Discharge Activity: Resume usual activity, Increase activity as tolerated and Limit activity as instructed Coding Level of Care Code ED Program Management Manager for Grace Bojorquez
[2025-03-03 10:10] LABS: Troponin(5th) Baseline < 6 ng/L (0-15)
[2025-03-03 10:13] LABS: Alanine Aminotransferase 28 U/L (0-41); Albumin Level 4.3 g/dL (3.5-5.2); Alkaline Phosphatase 77 U/L (40-130); Anion Gap 15.1 (5-19); Aspartate Amino Transferase 29 U/L (0-40); Blood Urea Nitrogen 15 mg/dL (6-20); Calcium 9.2 mg/dL (8.5-10.5); Carbon Dioxide 23 mmol/L (22-29); Chloride 102 mmol/L (98-107); Creatinine Clr Calc Pharmacy 146.0944; Globulin 2.8 g/dL (1.3-4.6); Glucose 104 mg/dL (65-115); Osmolality Calculated 283 mOsm/kg (285-295); Potassium 4.1 mmol/L (3.5-5.1); Sodium 136 mmol/L (136-145); Total Protein 7.1 g/dL (6.6-8.7)
--- NOTE | 2025-03-03 12:14 | ECG_ITS ---
[facility] 2025-03-03 Pat Name: Parvez Brice Department: Room: Gender: Male Chart Snatcher: : 1985 Requested By: Sam Romero Order Number: [id number] Angel MD: Ramirez Hurtado M.D. Measurements Intervals Drury Rate: 50 P: 37 AL: 237 QRS: 53 QRSD: 100 T: 52 QT: 437 QTc: 401 Interpretive Statements SINUS BRADYCARDIA WITH FIRST DEGREE AV BLOCK Compared to ECG 03/03/2025 09:29:51 First degree AV block now present Electronically Signed On 03-03-2025 22:53:09 CDT by Ramirez Hurtado M.D. [email or web address]
[2025-03-03 12:20] LABS: Troponin 5 2HR 11.03 ng/L (0-15); Troponin 5 2HR Delta 5.03001 ABS# (0-10)
[2025-03-03] MEDS: heparin 5,000 unit/mL INJ 1 mL IVP (12:58)
[2025-03-03] MEDS: heparin drip 25,000 UNIT/500 ML PREMIX 29 UNIT IV (12:59)
--- NOTE | 2025-03-03 14:00 | PC.NURSE ---
Admit Note Patient admitted to room 107 from ER via wheelchair. Covering service notified Dr. Cole and executive officer DIRECTOR PARK Nubia Contreras. Patient presents with chest pain. Orders reviewed & will continue to monitor. Patient and/or food service representative oriented to environment, equipment, and informed of the following as found in the admission booklet: patient rights & responsibilities, visitor policy, hand and respiratory hygiene practice. Other education includes: chest pain control and cardiac catheterization procedure scheduled tomorrow, npo after midnight. Patient and/or food service representative such as his verbalizes understanding.
--- NOTE | 2025-03-03 14:26 | PM.CONSULT ---
Providers/Reason For Consult Consulting Physician/Specialty*: Dr. Frost Reason for Consult*: Chest pain Attending Physician: Mckayla Cole MD Primary Care Provider: Harlan Steiner MD History of Present Illness History of Present Illness Parvez Brice is a 39 year old male with a history of STEMI requiring an LAD stent in 2019, atypical chest pain, alcoholism, hypertension came to the ER today for what he describes as chest pain to the left side of his chest and left arm numbness. He states that his chest pain is sharp and has been going on for 2 weeks. He denies aggravating and or relieving factors. Has not taken any nitro for this as he states his nitro at home is outdated. He states that the chest pain is random in nature. He states sometimes they can last 2 minutes and sometimes longer. States he is a former smoker and quit when he had his heart attack. He states he sees Dr. Blanco at [facility]. He is currently slightly bradycardic and states that his heart rate usually stays in the 50s. He does take bisoprolol at home. Denies any shortness of breath or chest pain at this time. Oxygen saturation is 99% on room air. On exam he appears euvolemic. Blood pressure is stable at 120/77. Currently he is on a heparin drip and was given aspirin 324 mg p.o. one-time in the ED Troponin was less than 6?11.03 awaiting 6-hour troponin EKG showed sinus bradycardia with first-degree AV block with no acute ST or T wave abnormalities Chest x-ray showed no acute findings Review of Systems Narrative: Consitutional: denies fever, chills, body aches, or changes in appetite, denies abnormal weight loss Eyes: Denies changes in vision Card: Denies chest pain, palpitations, irregular heart rhythm, edema, syncope, shortness of breath, orthopnea, leg pain with exertion Resp: Denies shortness of breath, denies hemoptysis, denies cough GI: denies abdominal pain, denies nausea or voimting, denies blood in stool : denies blood in urine, denies dysuria Musc: Denies extremity pain, denies limited range of motion or recent injury Skin: Denies rash, lesions, or wounds, denies changes to skin color Neuro: Denies nubmness in extremities, h/a, s/s of stroke Earnest: Denies easy bruiding/bleeding Medications/Allergies Home Medications ?Medication ?Instructions ?Recorded ?Confirmed ?Last Taken ?Type aspirin 81 mg tablet,delayed 81 mg PO DAILY 07/30/19 03/03/25 03/03/25 History release (Adult Low Dose Aspirin) nitroglycerin 0.4 mg sublingual 0.4 mg sublingual Q5M PRN chest 07/30/19 03/03/25 Unknown History tablet (Nitrostat) pains lisinopril 10 mg tablet 10 mg PO DAILY #90 tabs 12/31/22 03/03/25 03/03/25 Rx isosorbide mononitrate 30 mg 30 mg PO DAILY 08/18/24 03/03/25 03/03/25 History tablet,extended release 24 hr bisoprolol fumarate 5 mg tablet 2.5 mg PO DAILY 03/03/25 03/03/25 03/03/25 History Allergies Allergy/AdvReac Type Severity Reaction Status Date / Time Penicillins Allergy Severe ALGY-Hives Verified 08/18/24 15:53 Current Medications Generic Name Dose Route Start Last Admin Trade Name Freq PRN Reason Stop Dose Admin Heparin Sodium/Sodium Chloride 25,000 unit in 500 mls @ 0 mls/hr 03/03/25 12:30 03/03/25 12:59 Heparin Drip IV 13.9 unit/kg/hr CONT TROY 29 mls/hr Protocol Administration Per Protocol PFSH Acute PFSH: Medical History Encounter for vasectomy counseling Palpitations Atypical chest pain Anterior wall myocardial infarction Other stomatitis and mucositis (ulcerative) Insomnia Dyslipidemia CAD (coronary atherosclerotic disease) Ischemic cardiomyopathy Alcoholism HTN (hypertension), benign Surgical History S/P angioplasty with stent Family History Grandmother CAD (coronary artery disease) Cancer Lung disease Mother Parkinson disease Father , at age 50 Alcoholic Denies family history of Diabetes Clotting disorder Dementia Chronic kidney disease (CKD) Anesthesia complication Bleeding disorder Stroke Social History Smoking and tobacco/nicotine status: former use of tobacco/nicotine (quit 2019) Substance/Drug Use: never Household members: spouse Marital status: Number of children: 6 service: No Current occupational status: employed Camille/Confucianism: Buddhism Vitals/I&O/Wt Last Vital Signs Pulse 52 L 03/03/25 14:14 Resp 15 03/03/25 13:51 BP 120/77 03/03/25 14:14 Pulse Ox 99 03/03/25 14:14 O2 Del Method Room Air 03/03/25 09:31 Weight last 48 hrs Weight 230 lb Physical Exam Narrative: General: No apparent distress HENMT: normoceophalic Neck: No carotid bruit bilaterally Muskuloskeletal: Full ROM Respiratory: Normal respiratory effort, clear to auscultation bilaterally throughout all lung hagen, no use of accessory muscles Cardio: No JVD, regular rate, regular rhythm, S1 S2 normal, no murmurs, peripheral pulses 2+ radial palpated bilaterally GI: Normal to inspection, nondistended Extremities: Full ROM, normal, normal capillary refill, no cyanosis or edema Neuro: Alert and oriented x4, no focal motor deficits Psych: Affect normal, denies suicidal ideation, mental status grossly normal Skin: No rashes or lesions noted, no wounds Data 03/03/25 09:45 03/03/25 09:45 A&P Assessment and plan 1. S/P angioplasty with stent: 2. HTN (hypertension), benign: 3. CAD (coronary atherosclerotic disease): 4. Chest pain: Plan: Patient has a 2-week history of chest pain which is atypical in nature. Due to patient's increased risk with history of significant coronary artery disease at this time we recommend proceeding with a Lexiscan stress test. Agree with heparin drip. Would hold home bisoprolol as patient is slightly bradycardic on exam. Patient is chest pain-free at this time. Also we will obtain an echocardiogram to evaluate LV function and for any wall motion abnormalities. After exam, received a call from [facility]. Patient developed mild chest pressure to the chest. Orders for stat EKG given. Discussed with Dr. Frost. Patient to get nitro paste 1 inch. Plan for angiogram tomorrow due to ongoing chest pain and high risk for progressive coronary artery disease. Harman to review EKG with Dr. Frost. If worsening symptoms, notify cardiology. Thank you, Dr. Parmar, for allowing us to care for this very pleasant 39 year old gentleman. PDMP PDMP Reviewed: Not Reviewed Consult Attestations Medical Necessity Statement: Deferred to primary Coding Level of Care Code Acute Code for Chg Fwd Diagnoses S/P angioplasty with stent Z95.820 HTN (hypertension), benign I10 CAD (coronary atherosclerotic disease) I25.10 Chest pain R07.9
--- NOTE | 2025-03-03 14:38 | PC.NURSE ---
Chest Pressure Pt reports of chest pressure radiating to left arm, HR- 45-50s, sinus bradycardia, BP-125/80. 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 Telephone orders and written Orders reviewed to get EKG and start Nitro paste q6h, Proceed with cardiac catheterization tomorrow AM, NPO after midnight and cancel stress test that was previously ordered. Pt and at bedside informed
--- NOTE | 2025-03-03 14:59 | ECG_ITS ---
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 Measurements Intervals [place] Rate: 53 P: 33 RI: 233 QRS: 35 QRSD: 102 T: 37 QT: 442 QTc: 418 Interpretive Statements SINUS BRADYCARDIA WITH FIRST DEGREE AV BLOCK INTERPRETATION BASED ON A DEFAULT AGE OF 40 YEARS Compared to ECG 03/03/2025 12:14:04 No significant changes Electronically Signed On 03-03-2025 22:47:18 CDT by Ramirez Hurtado M.D. [id number]
--- NOTE | 2025-03-03 15:19 | PM.HP ---
Providers/Chief Complaint Admitting Physician: Mckayla Cole MD Primary Care Provider: Harlan Steiner MD Chief Complaint: sob, chest pain History of Present Illness Parvez Brice is a 39 year old male with a history of STEMI requiring an LAD stent in 2019, atypical chest pain, alcoholism, hypertension came to the ER today for what he describes as chest pain to the left side of his chest and left arm numbness. He states that his chest pain is sharp and has been going on for 1-2 weeks. He denies aggravating and or relieving factors. Has not taken any nitro for this as he states his nitro at home is outdated. He states that the chest pain is random in nature. He states sometimes they can last 2 minutes and sometimes longer. States he is a former smoker and quit when he had his heart attack. He states he sees Dr. Blanco at [facility]. No history of other drug abuse. Patient has been compliant to his medication and report that he has been into a little stress in the last couple of days. Did not report any fever, chills, nausea or vomiting, any dizziness, any syncope, recent lower leg swellings, any abdominal pain diarrhea and any other review of system was unremarkable apart from the mentioned above Review of Systems General: Reports: 10 or more systems reviewed and unremarkable except in HPI and below Const: Reports: diaphoresis Card: Reports: chest pain Medications/Allergies Home Medications ?Medication ?Instructions ?Recorded ?Confirmed ?Last Taken ?Type aspirin 81 mg tablet,delayed 81 mg PO DAILY 07/30/19 03/03/25 03/03/25 History release (Adult Low Dose Aspirin) nitroglycerin 0.4 mg sublingual 0.4 mg sublingual Q5M PRN chest 07/30/19 03/03/25 Unknown History tablet (Nitrostat) pains lisinopril 10 mg tablet 10 mg PO DAILY #90 tabs 12/31/22 03/03/25 03/03/25 Rx isosorbide mononitrate 30 mg 30 mg PO DAILY 08/18/24 03/03/25 03/03/25 History tablet,extended release 24 hr bisoprolol fumarate 5 mg tablet 2.5 mg PO DAILY 03/03/25 03/03/25 03/03/25 History Allergies Allergy/AdvReac Type Severity Reaction Status Date / Time Penicillins Allergy Severe ALGY-Hives Verified 08/18/24 15:53 PFSH Acute PFSH: Medical History (Updated 03/03/25 @ 15:29 by Mckayla Cole MD) Encounter for vasectomy counseling Palpitations Atypical chest pain Anterior wall myocardial infarction Other stomatitis and mucositis (ulcerative) Insomnia Dyslipidemia CAD (coronary atherosclerotic disease) Ischemic cardiomyopathy Alcoholism HTN (hypertension), benign Surgical History S/P angioplasty with stent Family History Grandmother CAD (coronary artery disease) Cancer Lung disease Mother Parkinson disease Father , at age 50 Alcoholic Denies family history of Diabetes Clotting disorder Dementia Chronic kidney disease (CKD) Anesthesia complication Bleeding disorder Stroke Social History Smoking and tobacco/nicotine status: former use of tobacco/nicotine (quit 2019) Substance/Drug Use: never Household members: spouse Marital status: Number of children: 6 service: No Current occupational status: employed Camille/Nondenominational: Cheondoism Vitals/I&O/Wt Last Vital Signs Temp 97.7 F 03/03/25 14:29 Pulse 46 L 03/03/25 14:29 Resp 20 H 03/03/25 14:29 BP 125/80 03/03/25 14:29 Pulse Ox 97 03/03/25 14:29 O2 Del Method Room Air 03/03/25 14:29 Weight last 48 hrs Weight 104.326 kg Physical Exam Narrative: General: Lying comfortably at room air without any distress, appropriate behavior and cooperative alert and oriented to time place and person HENMT: normoceophalic Neck: No carotid bruit bilaterally Respiratory: Normal respiratory effort, clear to auscultation bilaterally throughout all lung hagen, no use of accessory muscles Cardio: No JVD, regular rate, regular rhythm, S1 S2 normal, no murmurs or any abnormal heart sounds, bilateral peripheral pulses palpable with good volume. GI: Normal to inspection, nondistended, no organomegaly and bowel sounds audible Extremities: Full ROM, normal, normal capillary refill, no cyanosis or edema Neuro: Alert and oriented x4, no focal motor deficits Psych: Appropriate behavior Skin: Unremarkable exam Data 03/03/25 09:45 03/03/25 09:45 A&P Assessment and plan 1. Unstable angina: 2. CAD (coronary atherosclerotic disease): 3. S/P angioplasty with stent: 4. HTN (hypertension), benign: 5. Dyslipidemia: 39-year-old male with past medical history of STEMI requiring LAD stenting in 2019 presented with atypical chest pain that was related to exertion. The patient is compliant to his medications Cardiology on board and consulted for further management. The initial plan was for nuclear stress test for his chest pain however since the patient was having chest pain with bradycardia therefore the patient for cardiac catheter tomorrow Plan: - The patient was loaded with aspirin in the ER 324 mg, and heparin infusion as per ACS protocol to be started to follow the APTT range 50 to 70 seconds. - Hold beta-blockers due to concerns of bradycardia -Imdur 30 mg to continue as home medication -Lisinopril 10 mg daily to continue for with blood pressure -Follow U-Tox - TSH, lipid panel, hba1c - Echo stat. - Hold antihypertensive if MAP is less than 65 - N.p.o. from midnight for cardiac cath - VTE prophylaxis addressed and the patient is on heparin infusion. PDMP PDMP Reviewed: Not Reviewed Attestations Medical Necessity Statement*: The patient will stay more than 2 midnights for the management of his unstable angina as he needs cardiac cath and further management Time Spent in Patient Care: Greater than 35 minutes (>than 50% of time spent in counselling and/or direct pt care on unit). 50 Critical Care Time: Critical Care Time (min): 50 Other Attestations: This documentation was created by [employer] relief manager software. Every effort was made to ensure accuracy of relief manager.? Any obvious errors or omissions should be clarified with the author of the document. Coding Level of Care Code 20015 Diagnoses Unstable angina I20.0 CAD (coronary atherosclerotic disease) I25.10 S/P angioplasty with stent Z95.820 HTN (hypertension), benign I10 Dyslipidemia E78.5
--- NOTE | 2025-03-03 15:34 | USCV_ITS ---
Parvez Brice Age: 39 Gender: M : 1985 Exam Date: 03/03/2025 18:34 Ordering Phys: Mckayla Cole MD Technologist: SAAD [place] [facility] [place]: unstable angina, alcoholism, long-term smoker, continues smoking, History CAD, ischemic CM, HTN BP: 108 / 68 HR: 57 Rhythm: Sinus bradycardia Technical Quality: Adequate MEASUREMENTS (Male / Female) Normal Values 2D ECHO LV Diastolic Diameter PLAX 4.4 cm 4.2 - 5.9 / 3.9 - 5.3 cm IVS Diastolic Thickness 1.3 cm 0.6 - 1.0 / 0.6 - 0.9 cm IVS Systolic Thickness 1.9 cm LVPW Diastolic Thickness 1.2 cm 0.6 - 1.0 / 0.6 - 0.9 cm LVPW Systolic Thickness 1.6 cm LVOT Diameter 2.0 cm LV Ejection Fraction 2D Teich 63.0 % LV Ejection Fraction MOD 4C 65.3 % LV Ejection Fraction MOD 2C 60.4 % LV Ejection Fraction 2C AL 61.7 % LA Diameter 4.1 cm Aorta at Sinotubular Diameter 3.3 cm IVC Diameter 1.3 cm M-MODE LA Ao Ratio MM 1.3 AV Cusp Separation MM 2.4 cm DOPPLER AV Peak Velocity 108.0 cm/s LVOT Peak Velocity 84.0 cm/s AV Area Cont Eq vti 2.3 cm squared AV Area Cont Eq pk 2.3 cm squared MV Peak Velocity 89.0 cm/s MV Area PHT 2.9 cm squared Mitral E to A Ratio 0.9 TR Peak Velocity 236.0 cm/s TR Peak Gradient 22.3 mmHg TV Peak E Velocity 45.0 cm/s PV Peak Velocity 105.0 cm/s FINDINGS Left Ventricle Normal left ventricular size, systolic function and wall thickness, with no regional wall motion abnormalities. Left ventricular ejection fraction is estimated at 60%. Grade I/IV diastolic dysfunction (abnormal relaxation filling pattern), normal to mildly elevated filling pressures. Right Ventricle The right ventricle is normal in size and function. Right Atrium The right atrium is normal in size. Left Atrium The left atrium is normal in size. Mitral Valve Structurally normal mitral valve without significant stenosis or prolapse. There is no mitral regurgitation. Aortic Valve Structurally normal aortic valve without significant sclerosis or stenosis. There is no aortic regurgitation. Tricuspid Valve Structurally normal tricuspid valve without significant stenosis or regurgitation. Pulmonary artery systolic pressure is normal. Pulmonic Valve Mild pulmonary valve regurgitation. Pericardium Normal pericardium without effusion. Aorta Normal ascending aorta dimension. IVC The inferior vena cava appears normal. CONCLUSIONS Normal left ventricular size, systolic function and wall thickness, with no regional wall motion abnormalities. Left ventricular ejection fraction is estimated at 60%. Grade I/IV diastolic dysfunction (abnormal relaxation filling pattern), normal to mildly elevated filling pressures. There is no pericardial effusion. No significant valve abnormalities. Right atrial pressure is around 5 mm of mercury. Manda Frost MD (Electronically Signed) Final Date: 04 March 2025 12:36 S
--- NOTE | 2025-03-03 15:36 | ECG_ITS ---
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 Measurements Intervals [place] Rate: 47 P: 34 [place]: 237 QRS: 43 QRSD: 96 T: 40 QT: 413 QTc: 367 Interpretive Statements SINUS BRADYCARDIA WITH FIRST DEGREE AV BLOCK Compared to ECG 03/03/2025 12:14:04 No significant changes Electronically Signed On 03-03-2025 22:51:58 CDT by Ramirez Hurtado M.D. [id number] [id number]
[2025-03-03] MEDS: nitroglycerin 1 gm/inch oint Pkt 1 INCH TOPICAL ×2 (16:35→20:54)
[2025-03-03 17:05] LABS: Troponin 5 6HR 6.41 ng/L (0-15); Troponin 5 6HR Delta 0.41001 ng/L (0-12)
[2025-03-03 19:05] LABS: PCP Screen Urine Negative (Negative)
[2025-03-03 20:20] LABS: Partial Thromboplastin Time 250.0 SECONDS (23.9-36.7)
--- NOTE | 2025-03-03 21:41 | PC.NURSE ---
Patient had a PTT of 250, called doctor ron and he said to pause for for 4 hours and recheck the ptt. Then contacted the doctor because patient had nitropaste due, but his blood pressure was 106/61, physician said to give.
[2025-03-04] VITALS (22 sets, daily range): BP systolic 105–132; BP diastolic 58–91; PULSE 48–70; RESP 16–24; TEMP 36.6–36.8; O2SAT 94–98
[2025-03-04 01:05] LABS: Hematocrit 40.2 % (37-53); Hemoglobin 13.50 g/dL (11.27-16.99); Mean Corpuscular HGB Conc 33.6 g/dL (30-55); Mean Corpuscular Hemoglobin 29.6 pg (27-33); Mean Corpuscular Volume 88.2 fl (82-101); Nucleated Red Blood Cells % 0 %; Platelet Count 254 10^3/cmm (157-399); Red Blood Count 4.56 10^6/uL (3.85-5.65); White Blood Count 6.70 10^3/uL (3.29-11.43)
[2025-03-04 01:18] LABS: Partial Thromboplastin Time 28.7 SECONDS (23.9-36.7)
[2025-03-04 01:29] LABS: Cholesterol 106 mg/dL (0-200); HDL Cholesterol 42 mg/dL (60-100); Triglycerides 66 mg/dL (0-150)
[2025-03-04 01:38] LABS: Alanine Aminotransferase 23 U/L (0-41); Albumin Level 4.0 g/dL (3.5-5.2); Alkaline Phosphatase 70 U/L (40-130); Anion Gap 13.0 (5-19); Aspartate Amino Transferase 21 U/L (0-40); Blood Urea Nitrogen 12 mg/dL (6-20); Calcium 8.6 mg/dL (8.5-10.5); Carbon Dioxide 27 mmol/L (22-29); Chloride 106 mmol/L (98-107); Creatinine Clr Calc Pharmacy 132.5395; Globulin 2.4 g/dL (1.3-4.6); Glucose 94 mg/dL (65-115); Magnesium 1.9 mg/dL (1.7-2.3); Osmolality Calculated 294 mOsm/kg (285-295); Potassium 4.0 mmol/L (3.5-5.1); Sodium 142 mmol/L (136-145); Thyroid Stimulating Hormone 2.03 uIU/mL (0.27-4.20); Total Protein 6.4 g/dL (6.6-8.7)
[2025-03-04 01:55] LABS: Estmated Average Glucose 111; Hemoglobin A1C 5.5 % (4.0-6.0)
[2025-03-04] MEDS: nitroglycerin 1 gm/inch oint Pkt 1 INCH TOPICAL (03:56)
[2025-03-04 06:10] LABS: Partial Thromboplastin Time 62.0 SECONDS (23.9-36.7)
--- NOTE | 2025-03-04 08:41 | XACV_ITS ---
Exam Room: [facility] Ht: 175 cm Wt: 108 kg BSA: 2.34 m2 Gender: Male : 1985 Any Known Allergies: Penicillins Exam Priority: Routine Procedure(s): Procedure Description: Diagnostic procedure Procedure Description: Left Heart Catheterization Procedure Description: Left ventriculography Procedure Description: Coronary Angiography Margot MARES; Diagnostic Cath Status: Elective Diagnostic Findings * No disease noted in the Left Main, Left Anterior Descending, Right, or Circumflex coronary arteries. * Coronary angiography shows right dominance. * Patent previously placed proximal stent without significant in-stent restenosis.. * Left main: Normal LAD: Patent previously placed proximal stent without significant in-stent restenosis. Left circumflex: No significant disease RCA: Dominant vessel no significant disease. Conclusions 1. No disease noted in the Left Main, Left Anterior Descending, Right, or Circumflex coronary arteries. 2. Normal left ventricular systolic function. Ejection fraction of 60%. Recommendations * Continue current medical management and risk factor modification. Diagnostic RX Recommendation: medical therapy and/or counseling Ventriculography Ejection Fraction: 60.0 % Pressures Phase:Rest AO : 113 / 78 ( 94 ) @ 11:44:00 AM 122 / 78 ( 98 ) @ 11:53:00 AM LV : 128 / 0 / 21 @ 11:52:00 AM 129 / 0 / 21 @ 11:53:00 AM 125 / 0 / 21 @ 11:53:00 AM Valves Phase:DefaultPhase AV : 4.0 @ 10:59:29 AM AV Mean Gradient: 13.0 @ 10:59:29 AM Clinical Evaluation EBL: 5mL-10mL Procedural Details Procedure Consent Obtained. Admit Source: In Patient. Pre-Procedure Time Out. Identified patient by full name and date of as verbalized by the patient/guarantor. Does the consent match the physician's order: Yes. Accurate & Complete Informed Consent: Yes. Inpatient/Outpatient History & Physical on Chart: Yes. If H&P is completed, is and addenduem needed: No; If yes, is the addendum complete: N/A. Visualize and Verify Site with Patient/Guarantor: N/A. Relevant Radiology Images available: N/A. The risks, benefits, and alternatives of sedation and/or procedure were discussed by physician. The patient agrees to continue. Procedure started. [facility] Clinical Fraility Score: 3: Managing Well. 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 Chest Pain Symptom Assessment: Typical Angina Symptoms. Correct patient, site and procedure confirmed by cath team. Current diagnosis: Unstable angina. PERRLA. Strong, equal hand organization development consultant bilaterally. Lungs clear x 5 lobes. IV Site on Arrival: 20 gauge in the left anticubital. IV Fluids: 0.9% NaCl at KVO. 0 mL infused prior to laboratory aide. Pre Procedural Pulses: bilateral radial was 2+. Pre Procedural Pulses: bilateral dorsalis pedis was 2+. Pre Procedural Pulses: bilateral posterior tibial was 2+. Oxygen started at 2liters/min via nasal canula. right radial was prepped with chloroprep then draped in the usual sterile fashion. right groin was prepped with chloroprep then draped in the usual sterile fashion. Physician notified. Baseline sample Acquired. HR: 46 BPM. Physician arrived. Physician scrubbed in. Immediate Pre-Procedure Time Out. Correct Patient: Yes; Correct Procedure: Yes; Correct Site: Yes; Correct Patient Position: Yes; Correct Supplies: Yes; Dried Flammable Prep: Yes; Blood Products Available: No;. Lidocaine 1% infiltrated to the right radial. Arterial access obtained. A 5 zambian TIG catheter in over wire. ACT drawn. Results 227 seconds. Therapeutic limits - pre-heparin administration 90-150 seconds and monitoring heparin during a vascular procedure >250 seconds. Multiple views taken of left coronary artery. Catheter redirected to the RCA. Multiple views taken of right coronary artery. Catheter removed over the exchange wire. A 5 zambian Angled Pig catheter in over wire. EDP Sample taken: LV 128/0,21; HR: 59 BPM; SpO2: 100%. LV gram performed in ONTIVEROS @ 10 mL/second for a total of 30 mL. EDP Sample taken: LV 129/-1,21; HR: 59 BPM; SpO2: 100%. Pullback taken: LV 125/-1,21; AO 122/78(98); Mean: 13mmHg, Peak to Peak: 4mmHg, SEP: 6sec/min; HR: 57 BPM; SpO2: 100%. A TR Band was successful obtaining hemostatsis at the Right Radial artery insertion site. Physician scrubbed out. Post Procedure: Pulses reassessed and unchanged. PERRLA. Strong, equal hand organization development consultant bilaterally. No VTE prophylaxis required. Medication's Wasted: Lidocaine 1% = 18 mL. Medication's Wasted: Nitro = 49.8 mg. Medication's Wasted: Heparin = 1000 unit. Medication's Wasted: Other = Fentanyl 50mcg, Versed 1 mg. Total IV fluids: 25 mL. Post-op diagnosis: Patent prior proximal LAD stent. No significant stenosis. Complications: None. Estimated blood loss: 5mL-10mL. Responsiveness - Normal response to verbal stimuli; alert and oriented, PERRLA. Airway - Unaffected, no intervention required; spontaneous ventilation. Circulation: W/N/L, pulses unchanged. Nausea/Vomiting: No. Procedure completed. Patient transferred by bed to 1st floor. Vital chart was stopped. Access Site Site: Right Radial artery Sheath Size: 6 Fr Hemostasis Method: TR Band Hemostasis Success: Successful Procedure Medications Start: 10:36 AM Stop: 10:36 AM Medication: Versed Amount: 1 mg Route: I.V. Start: 10:36 AM Stop: 10:36 AM Medication: Fentanyl Amount: 50 mcg Route: I.V. Start: 10:41 AM Stop: 10:41 AM Medication: Nitrogylcerin Amount: 200 mcg Route: I.A. I, the attending physician, have reviewed and verified all procedure medications. Yes, all medications given per verbal order History/Risk Factors Hypertension: Yes Dyslipidemia: Yes Peripheral Arterial Disease (PAD): No Myocardial Infarction (TN): Yes Obesity: No Renal Disease: No Tobacco Use: Former Prior Interventions PCI: Yes CABG: No Valve Surgery: No Report Signatures Finalized by Manda Frost MD on 03/04/2025 11:06 AM
--- NOTE | 2025-03-04 10:31 | W.PM.OPSUD ---
Surgery/Procedure H&P Update DATE OF PROCEDURE: March 04, 2025 DATE H&P PERFORMED: 03/03/25 H&P UPDATE INFORMATION: I have reviewed H&P completed within last 30 days, I have examined patient prior to procedure and No changes to prior documentation PREOP DIAGNOSIS: Unstable angina PLANNED PROCEDURE: Operation Date: 03/04/25 10:00 Proposed Procedures p Cardiac Catheterization(Left) - Manda Frost MD PATIENT REASSESSED PRIOR TO SEDATION, WITH NO CHANGE NOTED: Yes PHYSICAL EXAM: alert, oriented x 3, clear to auscultation bilaterally, regular rate & rhythm and operative site marked AIRWAY EVAL/ANESTHESIA PLAN: ASA II, Risks, benefits & alternatives of sedation and/or procedure discussed and Patient agrees to continue as planned ADDITIONAL INFORMATION: Patient has been explained all risk-benefit and alternative for the procedure. Patient understand 2% risk of stroke major bleed. Patient understand 5% risk of minor bleeding bruising infection hematoma pseudoaneurysm contrast induced nephropathy urgent emergent vascular and cardiac surgery. Patient agrees to it and would like to proceed with it.
--- NOTE | 2025-03-04 11:27 | P.PN_ITS ---
Subjective 2 Subjective: Patient s/p lhc. Angiogram showed no disease in the lef main, lad, right , or circumflex coronary arteries, normal EF at 60%. Vitals/I&O/Wt Last Vital Signs Temp 98.0 F 03/04/25 07:20 Pulse 48 L 03/04/25 07:20 Resp 23 H 03/04/25 07:20 BP 115/76 03/04/25 07:20 Pulse Ox 95 03/04/25 07:20 O2 Del Method Room Air 03/03/25 15:12 03/03/25 03/04/25 03/04/25 22:59 06:59 14:59 Intake Total 460.883 / 890.925 3679.567 / 1514.450 Output Total 700 / 700 Balance -239.117 / -581.350 2669.567 / 814.450 Weight last 48 hrs Weight 239 lb 9 oz Weight 230 lb Physical Exam 2 Narrative: General: No apparent distress HENMT: normoceophalic Muskuloskeletal: Full ROM Extremities: Full ROM, normal, normal capillary refill, no cyanosis or edema Neuro: Alert and oriented x4 Psych: Affect normal, denies suicidal ideation, mental status grossly normal Data 03/04/25 00:49 03/04/25 00:49 A&P Assessment and plan 1. S/P angioplasty with stent: 2. HTN (hypertension), benign: 3. CAD (coronary atherosclerotic disease): 4. Chest pain: Plan: Patient's LHC was negative. Can be discharged on isosorbide mononitrate 30 mg. To f/u in our clinic in 1 week post cath follow up. Due to low pulse rate, would continue to hold bisoprolol. PDMP PDMP Reviewed: Not Reviewed Attestations 2 Medical Necessity Statement*: May be discharged from cardiology perspective. Coding Level of Care Code Acute Code for Chg Fwd Diagnoses S/P angioplasty with stent Z95.820 HTN (hypertension), benign I10 CAD (coronary atherosclerotic disease) I25.10 Chest pain R07.9
--- NOTE | 2025-03-04 12:29 | PC.NURSE ---
return from cardiac equipment operator/laborer at 1100.report received.pt is alert and awake and oriented x 4.denies pain at present.sb on monitor.right wrist with tr band on and inflated.right hand is warm to touch and with brisk capillary refill.no hematoma noted.palpable radial pulse noted distal to tr band.pt instructed in activity restrictions s/p radial artery procedure and instructed to notify staff for any bleeding,pain,sob,numbness,or for any concerns at all.pt verb understanding of instructions
--- NOTE | 2025-03-04 15:36 | PC.NURSE ---
tr band slowly deflated and eventually removed at 1445.site dressed with 2x2 gauze and secured with coban.pt instructed in activity restrictions s/p tr band removal,and instructed to notify staff for any bleeding,pain,numbness,sob,or for any concerns at all.pt verb understanding of instructions
--- NOTE | 2025-03-04 15:38 | PC.NURSE ---
discharge instructions given and explained.pt verb understanding of instructions.discharged ambulatiry to exit at this time.spouse to drive pt home
--- NOTE | 2025-03-04 16:22 | P.DS_ITS ---
Discharge Providers Date of Admission: 03/03/25 12:37 Date of Discharge: March 04, 2025 Attending Provider at Admission: Mckayla Cole MD Attending Provider at Discharge: Mckayla Cole MD Primary Care Provider: Harlan Steiner MD Diagnoses at Discharge Discharge Diagnosis 1. S/P angioplasty with stent: 2. HTN (hypertension), benign: 3. Atherosclerosis [place] coronary artery [place] heart with angina pecto ris: Reason for Visit Reason for Visit: sob, chest pain Brief History: Parvez Brice is a 39 year old male with a history of STEMI requiring an LAD stent in 2019, atypical chest pain, alcoholism, hypertension came to the ER today for what he describes as chest pain to the left side of his chest and left arm numbness. He states that his chest pain is sharp and has been going on for 1-2 weeks. He denies aggravating and or relieving factors. Has not taken any nitro for this as he states his nitro at home is outdated. He states that the chest pain is random in nature. He states sometimes they can last 2 minutes and sometimes longer. States he is a former smoker and quit when he had his heart attack. He states he sees Dr. Blanco at [facility]. No history of other drug abuse. Patient has been compliant to his medication and report that he has been into a little stress in the last couple of days. Hospital Course Hospital Course The patient was kept in the hospital and his bisoprolol was held considering having bradycardia which was asymptomatic. His initial labs were unremarkable and her troponin raised but not concerning for acute MA. The patient was initially for stress test however considering his chest heaviness, the patient underwent PCI and was negative for any chronic artery disease or stenosis. Cardiology was on board and reviewed the case further no intervention was pr ovided and was sent home on his home medication and Imdur. Bisoprolol was held considering patient having bradycardia around early 50s and late 40s. The patient was made aware about the plan of care, he understands and agreed with it without any language barrier. I have personally reviewed the patient file, EKG, chest x-ray and had at length discussion with the cardiology and the patient and the family about his condition and further management. During this encounter I have independently reviewed documentation, educated the patient and counseling was provided adequately for his current illness and further management of plan as inpatient and as outpatient for follow-ups. Physical Exam Narrative: General: Lying comfortably at room air without any distress, appropriate behavior and cooperative alert and oriented to time place and person HENMT: normoceophalic Neck: No carotid bruit bilaterally Respiratory: Normal respiratory effort, clear to auscultation bilaterally throughout all lung hagen, no use of accessory muscles Cardio: No JVD, regular rate, regular rhythm, S1 S2 normal, no murmurs or any abnormal heart sounds, bilateral peripheral pulses palpable with good volume. GI: Normal to inspection, nondistended, no organomegaly and bowel sounds audible Extremities: Full ROM, normal, normal capillary refill, no cyanosis or edema Neuro: Alert and oriented x4, no focal motor deficits Psych: Appropriate behavior Skin: Unremarkable exam Discharge Data Studies Completed and Pending Completed Studies During Hospitalization Category Date Time Status PHYSICIAN PRACTICE MARKET MANAGER request for service Routine Exams 03/04/25 08:41 Completed XR chest 1V portable [id number] Stat Exams 03/03/25 09:36 Completed CV. echo complete* [id number] Stat Ultrasound 03/03/25 15:34 Completed Pending at discharge Category Date Time Status Cardiac Stress Test MIBI [Sestamibi Stress Test Request Exams 03/03/25 14:00 Stop Req ] Routine Radiology Impressions Chest X-Ray 03/03/25 09:36 IMPRESSION: No acute findings. Laboratory Results WBC 6.70 10^3/uL (3.29-11.43) 03/04/25 00:49 RBC 4.56 10^6/uL (3.85-5.65) 03/04/25 00:49 Hgb 13.50 g/dL (11.27-16.99) 03/04/25 00:49 Hct 40.2 % (37-53) 03/04/25 00:49 MCV 88.2 fl (82-101) 03/04/25 00:49 MCH 29.6 pg (27-33) 03/04/25 00:49 MCHC 33.6 g/dL (30-55) 03/04/25 00:49 RDW 12.5 % (12.1-15.1) 03/04/25 00:49 Plt Count 254 10^3/cmm (157-399) 03/04/25 00:49 MPV 10.1 fL (7.4-10.4) 03/04/25 00:49 Neut % (Auto) 45.9 % 03/04/25 00:49 Lymph % (Auto) 41.2 % 03/04/25 00:49 [place] % (Auto) 9.4 % 03/04/25 00:49 Eos % (Auto) 2.8 % 03/04/25 00:49 Baso % (Auto) 0.6 % 03/04/25 00:49 Neut # (Auto) 3.07 10^3/uL (1.8-7.7) 03/04/25 00:49 Lymph # (Auto) 2.8 10^3/uL (0.8-4.8) 03/04/25 00:49 [place] # (Auto) 0.6 10^3/uL (0.2-0.9) 03/04/25 00:49 Eos # (Auto) 0.2 10^3/uL (0.0-0.8) 03/04/25 00:49 Baso # (Auto) 0.0 10^3/uL (0.0-0.1) 03/04/25 00:49 Nucleated RBC % (auto) 0 % 03/04/25 00:49 Nucleated RBCs # 0.0 /100WBC 03/04/25 00:49 APTT 62.0 SECONDS (23.9-36.7) H D 03/04/25 05:49 Sodium 142 mmol/L (136-145) 03/04/25 00:49 Sodium Cancelled 03/04/25 00:49 Potassium 4.0 mmol/L (3.5-5.1) 03/04/25 00:49 Potassium Cancelled 03/04/25 00:49 Chloride 106 mmol/L (98-107) 03/04/25 00:49 Chloride Cancelled 03/04/25 00:49 Carbon Dioxide 27 mmol/L (22-29) 03/04/25 00:49 Carbon Dioxide Cancelled 03/04/25 00:49 Anion Gap 13.0 (5-19) 03/04/25 00:49 Anion Gap Cancelled 03/04/25 00:49 BUN 12 mg/dL (6-20) 03/04/25 00:49 BUN Cancelled 03/04/25 00:49 Creatinine 0.9 mg/dL (0.7-1.2) 03/04/25 00:49 Creatinine Cancelled 03/04/25 00:49 GFR Calculation 93.5 mL/min (90-130) 03/04/25 00:49 GFR Calculation Cancelled 03/04/25 00:49 Glucose 94 mg/dL (65-115) 08 00:49 Glucose Cancelled 03/04/25 00:49 Estimat Average Glucose 111 03/04/25 00:49 Hemoglobin A1c 5.5 % (4.0-6.0) 03/04/25 00:49 Calculated Osmolality 294 mOsm/kg (285-295) 03/04/25 00:49 Calculated Osmolality Cancelled 03/04/25 00:49 Calcium 8.6 mg/dL (8.5-10.5) 03/04/25 00:49 Calcium Cancelled 03/04/25 00:49 Magnesium 1.9 mg/dL (1.7-2.3) 03/04/25 00:49 Total Bilirubin 0.3 mg/dL (0.15-1.2) 03/04/25 00:49 AST 21 U/L (0-40) 03/04/25 00:49 ALT 23 U/L (0-41) 03/04/25 00:49 Alkaline Phosphatase 70 U/L (40-130) 03/04/25 00:49 Troponin T Baseline < 6 ng/L (0-15) 03/03/25 09:45 Troponin T 120 Minute 11.03 ng/L (0-15) 03/03/25 11:46 Delta Troponin T 5.01030 ABS# (0-10) 03/03/25 11:46 Troponin T Hi Sens 6Hr 6.41 ng/L (0-15) 03/03/25 16:10 Troponin T Hi Sens 6Hr Delta 0.58444 ng/L (0-12) 03/03/25 16:10 Total Protein 6.4 g/dL (6.6-8.7) L 03/04/25 00:49 Albumin 4.0 g/dL (3.5-5.2) 03/04/25 00:49 Globulin 2.4 g/dL (1.3-4.6) 03/04/25 00:49 Triglycerides 66 mg/dL (0-150) 03/04/25 00:49 Cholesterol 106 mg/dL (0-200) 03/04/25 00:49 LDL Cholesterol, Calc 51 mg/dL (50-129) 03/04/25 00:49 HDL Cholesterol 42 mg/dL (60-100) L 03/04/25 00:49 LDL/HDL Ratio 1.21 RATIO (0.00-3.22) 03/04/25 00:49 Cholesterol/HDL Ratio 2.52 mg/dL (1.0-5.00) 03/04/25 00:49 TSH 2.03 uIU/mL (0.27-4.20) 03/04/25 00:49 Urine Opiates Screen Cancelled 03/03/25 18:15 Urine Opiates Screen Negative ng/mL (Negative) 03/03/25 18:15 Ur Barbiturates Screen Cancelled 03/03/25 18:15 Ur Barbiturates Screen Negative ng/mL (Negative) 03/03/25 18:15 Ur Phencyclidine Scrn Cancelled 03/03/25 18:15 Ur Phencyclidine Scrn Negative ng/mL (Negative) 03/03/25 18:15 Ur Amphetamines Screen Cancelled 03/03/25 18:15 Ur Amphetamines Screen Negative ng/mL (Negative) 03/03/25 18:15 U Benzodiazepines Scrn Cancelled 03/03/25 18:15 U Benzodiazepines Scrn Negative ng/mL (Negative) 03/03/25 18:15 Urine Cocaine Screen Cancelled 03/03/25 18:15 Urine Cocaine Screen Negative ng/mL (Negative) 03/03/25 18:15 U Marijuana (THC) Screen Cancelled 03/03/25 18:15 U Marijuana (THC) Screen Negative ng/mL (Negative) 03/03/25 18:15 Vitals Last Vital Signs Temp 97.9 F 03/04/25 10:59 Pulse 56 L 03/04/25 15:00 Resp 16 03/04/25 15:00 BP 114/59 03/04/25 14:45 Pulse Ox 95 03/04/25 15:00 O2 Del Method Room Air 03/03/25 15:12 Discharge Plan Discharge Patient Disposition: Home Condition: Stable Prescriptions: Continued nitroglycerin [Nitrostat] 0.4 mg tablet, sublingual 0.4 mg SUBLINGUAL Q5M PRN (Reason: chest pains) aspirin [Adult Low Dose Aspirin] 81 mg tablet,delayed release (DR/EC) 81 mg PO DAILY isosorbide mononitrate 30 mg tablet extended release 24 hr 30 mg PO DAILY lisinopril 10 mg tablet 10 mg PO DAILY Qty: 90 3RF Discontinued bisoprolol fumarate 5 mg tablet 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 for DC: Cardiology Discharge Order = DC NOW: Discharge Order (Routine); Ordered 03/04/25 Ordered By: Mckayla Cole Referrals: Nubia Contreras NP [Nurse Practitioner, Cardiology] - 03/18/25 8:30 am Harlan Steiner MD [Primary Care Provider, Family Practice] - 03/05/25 11:00 am Discharge Diet: Advance as tolerated, Usual diet and Cardiac Discharge Activity: Resume usual activity, Increase activity as tolerated and Limit activity as instructed Patient Instructions: Heart Catheterization (DC), Chest Pain Stoplight, Opioid Safety, Post Angiogram Home Care Instructions, Patient Portal & Nadya Instructions Activity Restrictions/Additional Instructions: to be followed with the cardiology in 1 week post discharge in case of any chest pain or any sob or concerning symptoms like nausea or vomiting, chest heaviness, exertional dyspnea, syncope, Lower leg swellings, left arm pain or such concerning symptoms to come to the ER Discharge Attestations Time Spent in Discharge Care*: greater than 30 min Specific Discharge Activities: educating patient, educating and/or supporting family/caregiver, discussing with pcp/other providers, discussing with case checker/social workers/dc planners, documenting/other paperwork and evaluating patient/reviewing data Time Spent in Smoking Cessation: 3 to 10 minutes Status at Discharge: Cognitive status at discharge: cognitively intact , Behavioral status at discharge: cooperative , Functional status at discharge: independent ambulation , Overall status at discharge: patient is back to baseline Quality Metrics Clinical Quality Measures [ No reported AMI, CVA or VTE this stay] Coding Level of Care Code 61942 Diagnoses S/P angioplasty with stent Z95.820 HTN (hypertension), benign I10 Atherosclerosis [place] coronary artery of [place] heart with angina pectoris I25.119 Associated angina: with unspecified angina Coronary Disease-Associated Artery/Lesion type: [place] artery [place] vs. transplanted heart: [place] heart Chest pain R07.9 Chest pain type: unspecified Time Spent (min) 50
== END 2025-03-04 15:39 | disposition home or self-care (01) | DRG 287 ==
LOC: ER 11:06 → CSU 13:07
PROVIDERS: Family Medicine; Internal Medicine Cardiovascular Disease; Nurse Practitioner Family; Admitting Provider Student in an Organized Health Care Education/Training Program; Emergency Provider Family Medicine; PCP Family Medicine; Visit Provider Student in an Organized Health Care Education/Training Program
PROC: 4A023N7 Measurement of Cardiac Sampling and Pressure, Left Heart, Percutaneous Approach (ICD-10-PCS; principal; 2025-03-04 10:00)
DX: R07.9 Chest pain, unspecified (principal); R00.1 Bradycardia, unspecified; I25.10 Atherosclerotic heart disease of native coronary artery without angina pectoris; I10 Essential (primary) hypertension; F10.10 Alcohol abuse, uncomplicated; G47.00 Insomnia, unspecified; E78.5 Hyperlipidemia, unspecified; I25.5 Ischemic cardiomyopathy; I25.2 Old myocardial infarction; Z79.82 Long term (current) use of aspirin; Z95.5 Presence of coronary angioplasty implant and graft; Z87.891 Personal history of nicotine dependence
CPT/HCPCS: 36415; 71045; 80053; 80061; 80306; 83036; 83735; 84443; 84484; 85025; 85347; 85730; 93005; 93306; 93458; 96365; 96366; 99152; 99153; 99285; C1769; C1887; C1894; J1644; J2250; J3010; J3490; J7030; J9999; Q0163; Q9967